=== PATIENT | male | born 1955 | race Caucasian/White ===

== ENCOUNTER 2017-09-04 14:45 | Emergency (ER) | payer BC, MEDICAID ==
[2017-09-04] MEDS ORDERED: Ketorolac INJ* 30 MG/ML 1 ML VIAL IV ONE (17:29)
[2017-09-04 18:20] LABS: ABS Basophils 0.1 10^3/ul (0-0.2); ABS Eosinophils 0.1 10^3/ul (0-0.6); ABS Lymphocytes 1.9 10^3/ul (1.0-4.8); ABS Monocytes 0.6 10^3/ul (0-0.8); ABS Neutrophils 5.6 10^3/ul (1.5-7.7); ABS Nucleated RBC 0 10^3/ul; Eosinophil % 1.7 % (0-6); Hematocrit 48 % (42-52); Hemoglobin 16.2 g/dl (14.0-18.0); Lymphocyte % 22.6 % (25-47); Mean Corpuscular HGB Conc 34 g/dl (31-36); Mean Corpuscular Hemoglobin 31 pg (27-31); Mean Corpuscular Volume 91 fL (80-94); Mean Platelet Volume 7.9 um3 (7.4-10.4); Nucleated Red Blood Cells % 0; Platelet Count 227 10^3/ul (150-450); Red Blood Count 5.24 10^6/ul (4.0-5.4); Red Cell Distribution Width 14 % (10.5-15); White Blood Count 8.3 10^3/ul (3.5-10.8)
[2017-09-04 18:52] LABS: EGFR Non-African American 74.5 (>60)
[2017-09-04] MEDS ORDERED: Iohexol 300* (CONTRAST) 10 ML SDV IV ONE (19:21)
[2017-09-04 20:01] LABS: Urine Appearance Clear; Urine Blood Negative (Negative); Urine Color Yellow; Urine Ketones Trace (Negative); Urine Protein Negative (Negative); Urine Specific Gravity 1.026 (1.010-1.030); Urine Urobilinogen Negative (Negative)
--- NOTE | 2017-09-04 20:25 | RAD ---
Indication: Left lower quadrant pain. CT of the abdomen and pelvis was performed without oral or IV contrast administration. Coronal and sagittal reconstructed images were obtained. Lung bases demonstrate no pleural fluid, nodules or masses. Heart is normal size without evidence of pericardial effusion. Liver is normal in size. No focal lesions or intrahepatic ductal dilatation is noted. Common duct is not dilated. Gallbladder demonstrates no evidence of calcified gallstones, pericholecystic fluid or wall thickening. The pancreas demonstrates no mass or pancreatic duct dilatation. The spleen is normal in size. No adrenal lesions are noted. The kidneys demonstrate no hydronephrosis. There is a cyst in the upper pole of left kidney measuring up to 3.1 cm. Lower pole cyst is noted in the left kidney measuring up to 2.8 cm. No retroperitoneal lymphadenopathy is noted. Atherosclerotic aorta is noted. CT of the pelvis demonstrates no pelvic adenopathy. No dilated loops of bowel are noted. The appendix is visualized and is normal. No hernias are noted. The prostate is enlarged. There is deformity of the pelvis from prior pelvic fracture. No inguinal hernia is noted. Degenerative changes of both hip are noted. No fracture is noted. IMPRESSION: Diverticulosis without definite evidence of diverticulitis. No abnormal masses or fluid collections are noted. Evidence of prior pelvic fracture. Moderate degenerative changes of both hips are noted.
[2017-09-04] MEDS ORDERED: traMADol TAB* 50 MG PO PRN (20:38)
[2017-09-04 21:02] VITALS: BP 139/89
--- NOTE | 2017-09-04 21:05 | ED ---
Shahram Stewart Thomas, scribed for Bryce Matson MD on 09/04/17 at 1754 . Abdominal Pain/Male - HPI Summary HPI Summary: The patient is a 62 year old male presenting with lower abdominal pain that began one week ago. He complains of nausea after eating for the last 4-5 days. He also complains of soreness to his testicles. He has been evaluated by his PMD and a hernia specialist. The hernia specialist told him that he did not have a hernia. He tells me that he had a recent urinalysis that was negative for UTI. - History of Current Complaint Chief Complaint: EDAbdPain Stated Complaint: LWR ABD PAIN Time Seen by Provider: 09/04/17 17:12 Hx Obtained From: Patient Onset/Duration: Lasting Weeks - 1, Still Present Severity Currently: Severe Pain Intensity: 7 Pain Scale Used: 0-10 Numeric Location: Other - Lower abd Aggravating Factor(s): Nothing Alleviating Factor(s): Nothing Associated Signs And Symptoms: Positive: Nausea, Other - Testicular soreness. Negative: Fever - Allergies/Home Medications Allergies/Adverse Reactions: Allergies Allergy/AdvReac Type Severity Reaction Status Date / Time No Known Allergies Allergy Verified 09/04/17 14:52 PMH/Surg Hx/FS Hx/Imm Hx Cardiovascular History: Reports: Hx Coronary Artery Disease - CAD Denies: Other Cardiovascular Problems/Disorders Respiratory History: Denies: Other Respiratory Problems/Disorders GI History: Denies: Other GI Disorders Musculoskeletal History: Reports: Hx Arthritis - LEFT WRIST Sensory History: Denies: Hx Contacts or Glasses, Hx Hearing Aid Opthamlomology History: Denies: Hx Contacts or Glasses Neurological History: Reports: 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 ALCOHOL Denies: Other Neuro Impairments/Disorders - Surgical History Surgery Procedure, Year, and Place: 1980S, SKULL, JAW, NOSE, LEFT WRIST, RIGHT LEG FROM A FALL, [place] Hx Anesthesia Reactions: No Infectious Disease History: No Infectious Disease History: Denies: Traveled Outside the [place] in Last 30 Days - Social History Alcohol Use: None Alcohol Amount: Clean since 1998 Substance Use Type: Reports: None Substance Use Comment - Amount & Last Used: Clean since 1998 Smoking Status (MU): Heavy Every Day Tobacco Smoker Type: Cigarettes Amount Used/How Often: 1 PPD Review of Systems Negative: Fever Positive: Abdominal Pain, Nausea Positive: other - Testicular soreness All Other Systems Reviewed And Are Negative: Yes Physical Exam - Summary Physical Exam Summary: Appearance: The patient is well-nourished in no acute distress and in no acute pain. Skin: The skin is warm and dry and skin color reflects adequate perfusion. HEENT: The head is normocephalic and atraumatic. The pupils are equal and reactive. The conjunctivae are clear and without drainage. Nares are patent and without drainage. Mouth reveals moist mucous membranes and the throat is without erythema and exudate. The external ears are intact. The ear canals are patent and without drainage. The tympanic membranes are intact. Neck: the neck is supple with full range of motion and non-tender. There are no carotid bruits. There is no neck vein distension. Respiratory: Chest is non-tender. Lungs are clear to auscultation and breath sounds are symmetrical and equal. Cardiovascular: Heart is regular rate and rhythm. There is no murmur or rub auscultated. There is no peripheral edema and pulses are symmetrical and equal. Abdomen: The abdomen is soft. He is mildly tender to the left inguinal area. He is nontender to the RLQ. There are no masses appreciated. There are normal bowel sounds heard in all four quadrants and there is no organomegaly palpated. Musculoskeletal: There is no back tenderness noted. Extremities are non-tender with full range of motion. There is good capillary refill. There is no peripheral edema or calf tenderness elicited. Neurological: Patient is alert and oriented to person, place and time. The patient has symmetrical motor strength in all four extremities. Cranial nerves are grossly intact. Deep tendon reflexes are symmetrical and equal in all four extremities. Psychiatric: The patient has an appropriate affect and does not exhibit any anxiety or depression. Triage Information Reviewed: Yes Vital Signs On Initial Exam: Initial Vitals Temp Pulse Resp BP Pulse Ox 98.1 F 75 16 132/79 100 09/04/17 14:53 09/04/17 14:53 09/04/17 14:53 09/04/17 14:53 09/04/17 14:53 Vital Signs Reviewed: Yes Diagnostics - Vital Signs Vital Signs Temp Pulse Resp BP Pulse Ox 09/04/17 16:58 98.5 F 61 16 131/77 09/04/17 14:53 98.1 F 75 16 132/79 100 - Laboratory Lab Results: Lab Results 09/04/17 09/04/17 09/04/17 Range/Units 18:00 18:00 18:00 WBC 8.3 (3.5-10.8) 10^3/ul RBC 5.24 (4.0-5.4) 10^6/ul Hgb 16.2 (14.0-18.0) g/dl Hct 48 (42-52) % MCV 91 (80-94) fL MCH 31 (27-31) pg MCHC 34 (31-36) g/dl RDW 14 (10.5-15) % Plt Count 227 (150-450) 10^3/ul MPV 7.9 (7.4-10.4) um3 Neut % (Auto) 67.4 (38-83) % Lymph % (Auto) 22.6 L (25-47) % [place] % (Auto) 6.8 (0-7) % Eos % (Auto) 1.7 (0-6) % Baso % (Auto) 1.5 (0-2) % Absolute Neuts (auto) 5.6 (1.5-7.7) 10^3/ul Absolute Lymphs (auto) 1.9 (1.0-4.8) 10^3/ul Absolute Monos (auto) 0.6 (0-0.8) 10^3/ul Absolute Eos (auto) 0.1 (0-0.6) 10^3/ul Absolute Basos (auto) 0.1 (0-0.2) 10^3/ul Absolute Nucleated RBC 0 10^3/ul Nucleated RBC % 0 Sodium 133 L (139-145) mmol/L Potassium TNP Chloride 104 (101-111) mmol/L Carbon Dioxide 24 (22-32) mmol/L Anion Gap 5 (2-11) mmol/L BUN 28 H (6-24) mg/dL Creatinine 1.02 (0.67-1.17) mg/dL Est GFR ( Amer) 95.8 (>60) Est GFR (Non-Af Amer) 74.5 (>60) BUN/Creatinine Ratio 27.5 H (8-20) Glucose 83 (70-100) mg/dL Lactic Acid 0.6 (0.5-2.0) mmol/L Calcium 9.0 (8.6-10.3) mg/dL Total Bilirubin 0.40 (0.2-1.0) mg/dL AST TNP ALT 16 (7-52) U/L Alkaline Phosphatase 51 (34-104) U/L C-Reactive Protein 1.19 (< 5.00) mg/L Total Protein 7.2 (6.4-8.9) g/dL Albumin 4.0 (3.2-5.2) g/dL Globulin 3.2 (2-4) g/dL Albumin/Globulin Ratio 1.3 (1-3) Lipase 26 (11.0-82.0) U/L Urine Color Urine Appearance Urine pH (5-9) Ur Specific [place] (1.010-1.030) Urine Protein (Negative) Urine Ketones (Negative) Urine Blood (Negative) Urine Nitrate (Negative) Urine Bilirubin (Negative) Urine Urobilinogen (Negative) Ur Leukocyte Esterase (Negative) Urine Glucose (Negative) 09/04/17 09/04/17 Range/Units 19:50 19:54 WBC (3.5-10.8) 10^3/ul RBC (4.0-5.4) 10^6/ul Hgb (14.0-18.0) g/dl Hct (42-52) % MCV (80-94) fL MCH (27-31) pg MCHC (31-36) g/dl RDW (10.5-15) % Plt Count (150-450) 10^3/ul MPV (7.4-10.4) um3 Neut % (Auto) (38-83) % Lymph % (Auto) (25-47) % [place] % (Auto) (0-7) % Eos % (Auto) (0-6) % Baso % (Auto) (0-2) % Absolute Neuts (auto) (1.5-7.7) 10^3/ul Absolute Lymphs (auto) (1.0-4.8) 10^3/ul Absolute Monos (auto) (0-0.8) 10^3/ul Absolute Eos (auto) (0-0.6) 10^3/ul Absolute Basos (auto) (0-0.2) 10^3/ul Absolute Nucleated RBC 10^3/ul Nucleated RBC % Sodium (139-145) mmol/L Potassium 4.2 Chloride (101-111) mmol/L Carbon Dioxide (22-32) mmol/L Anion Gap (2-11) mmol/L BUN (6-24) mg/dL Creatinine (0.67-1.17) mg/dL Est GFR ( Amer) (>60) Est GFR (Non-Af Amer) (>60) BUN/Creatinine Ratio (8-20) Glucose (70-100) mg/dL Lactic Acid (0.5-2.0) mmol/L Calcium (8.6-10.3) mg/dL Total Bilirubin (0.2-1.0) mg/dL AST 17 ALT (7-52) U/L Alkaline Phosphatase (34-104) U/L C-Reactive Protein (< 5.00) mg/L Total Protein (6.4-8.9) g/dL Albumin (3.2-5.2) g/dL Globulin (2-4) g/dL Albumin/Globulin Ratio (1-3) Lipase (11.0-82.0) U/L Urine Color Yellow Urine Appearance Clear Urine pH 6.0 (5-9) Ur Specific [place] 1.026 (1.010-1.030) Urine Protein Negative (Negative) Urine Ketones Trace A (Negative) Urine Blood Negative (Negative) Urine Nitrate Negative (Negative) Urine Bilirubin Negative (Negative) Urine Urobilinogen Negative (Negative) Ur Leukocyte Esterase Negative (Negative) Urine Glucose Negative (Negative) Result Diagrams: 09/04/17 18:00 09/04/17 19:54 Lab Statement: Any lab studies that have been ordered have been reviewed, and results considered in the medical decision making process. - CT CT Abdomen/Pelvis CT Interpretation: No Acute Changes - IMPRESSION: Diverticulosis without definite evidence of diverticulitis. No abnormal masses or fluid collections are noted. Evidence of prior pelvic fracture. Moderate degenerative changes of both hips are noted. CT Interpretation Completed By: Radiologist Re-Evaluation - Re-Evaluation First Eval Re-Evaluation Time: 20:39 Comment: Results discussed. Patient will be discharged. Abdominal Pain Fem Course/Dx - Course Course Of Treatment: Mr. Aden presented with some pain in his left inguinal area. His W/U was negative and his exam nondiagnostic so I will treat him symptomatically with Tramadol and encourage close F/U. - Diagnoses Provider Diagnoses: Abdominal pain Discharge - Sign-Out/Discharge Documenting (check all that apply): Discharge - Discharge Plan Condition: Stable Disposition: HOME Prescriptions: traMADol TAB* [Ultram*] 50 mg PO Q6HR PRN #20 tab MDD 4 PRN Reason: Pain Patient Education Materials: Abdominal Pain (ED) Referrals: Rohan Mchugh MD [Primary Care Provider] - 3 Days Additional Instructions: Follow up with your primary care physician in two days. Return to the emergency department for any new or worsening symptoms. - Billing Disposition and Condition Condition: STABLE Disposition: HOME The documentation as recorded by the Shahram gonsalves Thomas accurately reflects the service I personally performed and the decisions made by , Bryce Matson MD.
== END 2017-09-04 20:58 | disposition home or self-care (01) ==
LOC: ED 14:45
DX: R10.30 Lower abdominal pain, unspecified (principal); F17.210 Nicotine dependence, cigarettes, uncomplicated; I25.10 Atherosclerotic heart disease of native coronary artery without angina pectoris; K57.90 Diverticulosis of intestine, part unspecified, without perforation or abscess without bleeding
CPT/HCPCS: 36415; 74177; 80053; 81003; 83605; 83690; 85025; 86140; 96374; 96375; 99282; J1885; Q9967

== ENCOUNTER 2017-09-23 10:46 | Emergency (ER) | payer SELFPAY ==
[2017-09-23 12:05] LABS: ABS Basophils 0.1 10^3/ul (0-0.2); ABS Eosinophils 0.1 10^3/ul (0-0.6); ABS Lymphocytes 1.4 10^3/ul (1.0-4.8); ABS Monocytes 0.6 10^3/ul (0-0.8); ABS Nucleated RBC 0 10^3/ul; Eosinophil % 1.3 % (0-6); Hematocrit 47 % (42-52); Hemoglobin 16.3 g/dl (14.0-18.0); Lymphocyte % 19.2 % (25-47); Mean Corpuscular HGB Conc 35 g/dl (31-36); Mean Corpuscular Hemoglobin 31 pg (27-31); Mean Corpuscular Volume 90 fL (80-94); Mean Platelet Volume 7.5 um3 (7.4-10.4); Nucleated Red Blood Cells % 0; Platelet Count 304 10^3/ul (150-450); Red Blood Count 5.24 10^6/ul (4.0-5.4); Red Cell Distribution Width 13 % (10.5-15); White Blood Count 7.1 10^3/ul (3.5-10.8)
[2017-09-23] MEDS ORDERED: Morphine VIAL* 4 MG/ML VIAL (1 ml vial) IV ONE (12:11)
[2017-09-23 12:24] LABS: EGFR Non-African American 75.4 (>60)
--- NOTE | 2017-09-23 13:04 | RAD ---
INDICATION: Chest pain COMPARISON: Chest x-ray dated November 02, 2014. TECHNIQUE: PA and lateral views of the chest were obtained. FINDINGS: The heart and mediastinum are normal in size and contour. Immediately lateral to the right hilum there is a well-circumscribed 1.8 cm focus exhibiting hyperdense material on the bone windows is consistent with a calcified granuloma. Otherwise the lungs are grossly clear. There is no evidence of large pleural effusion. Visualized bones are normal for the patient's age. There is no radiographic evidence of free air beneath the diaphragm IMPRESSION: STABLE RIGHT HILAR CALCIFIED GRANULOMA WITHOUT ACUTE CHEST X-RAY FINDINGS.
[2017-09-23 14:24] VITALS: BP 144/82
--- NOTE | 2017-09-23 15:13 | ED ---
Complex/Multi-Sys Presentation - HPI Summary HPI Summary: Patient is a 8-year-old male who presents emergency department for left lateral neck pain that radiates into her jaw and shoulder times several days. Patient also notes intermittent tingling to the left upper side of his face. He denies headache, vision changes, unilateral numbness, tingling or weakness, recent illness, chest pain, shortness of breath. Patient does not recall any specific injury. Pain is worse with movement and touching left-sided neck. Past medical history of COPD and smoking. Symptoms are moderate in severity. - History Of Current Complaint Chief Complaint: EDNeckComplaint Time Seen by Provider: 09/23/17 11:20 Hx Obtained From: Patient - Allergies/Home Medications Allergies/Adverse Reactions: Allergies Allergy/AdvReac Type Severity Reaction Status Date / Time No Known Allergies Allergy Verified 09/23/17 11:25 Home Medications: Home Medications Aspirin EC TAB* [Ecotrin EC Low Dose 81 MG*] 81 mg PO DAILY 09/23/17 [History Confirmed 09/23/17] PMH/Surg Hx/FS Hx/Imm Hx Previously Healthy: Yes Endocrine/Hematology History: Denies: Hx Diabetes Cardiovascular History: Reports: Hx Coronary Artery Disease - CAD Denies: Hx Hypertension, Other Cardiovascular Problems/Disorders Respiratory History: Denies: Other Respiratory Problems/Disorders GI History: Denies: Other GI Disorders History: Denies: Hx Renal Disease Musculoskeletal History: Reports: Hx Arthritis - LEFT WRIST Sensory History: Denies: Hx Contacts or Glasses, Hx Hearing Aid Opthamlomology History: Denies: Hx Contacts or Glasses Neurological History: Reports: 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 ALCOHOL Denies: Other Neuro Impairments/Disorders - Surgical History Surgery Procedure, Year, and Place: 1980S, SKULL, JAW, NOSE, LEFT WRIST, RIGHT LEG FROM A FALL, [place] Hx Anesthesia Reactions: No Infectious Disease History: No Infectious Disease History: Denies: Traveled Outside the [place] in Last 30 Days - Social History Occupation: Employed Full-time Lives: With Family Alcohol Use: None Alcohol Amount: Clean since 1998 Substance Use Type: Reports: None Substance Use Comment - Amount & Last Used: Clean since 1998 Smoking Status (MU): Heavy Every Day Tobacco Smoker Type: Cigarettes Amount Used/How Often: 1 PPD Review of Systems Constitutional: Negative Negative: Fever, Chills Eyes: Negative ENT: Negative Cardiovascular: Negative Negative: Palpitations, Chest Pain Respiratory: Negative Negative: Shortness Of Breath, Cough Skin: Negative Negative: Rash Neurological: Negative Positive: Paresthesia - occasional tingling to left upper side of face. Negative: Headache, Weakness, Numbness, Syncope, Slurred Speech All Other Systems Reviewed And Are Negative: Yes Physical Exam Triage Information Reviewed: Yes Vital Signs On Initial Exam: Initial Vitals Temp Pulse Resp BP Pulse Ox 97.8 F 91 16 150/92 99 09/23/17 10:50 09/23/17 10:50 09/23/17 10:50 09/23/17 10:50 09/23/17 10:50 Vital Signs Reviewed: Yes Appearance: Positive: Well-Appearing - Patient sitting in chair no acute chest her present. Skin: Positive: Warm, Dry Head/Face: Positive: Normal Head/Face Inspection Eyes: Positive: Normal, GEOVANNY Neck: Positive: Other: - No midline tenderness. Pain along the lateral left neck into the shoulder. Pain is reproducible. Overlying erythema or wounds. Respiratory/Lung Sounds: Positive: Clear to Auscultation, Breath Sounds Present Cardiovascular: Positive: Normal, RRR Musculoskeletal: Positive: Other - 5 out of 5 strength in bilateral upper extremities without neurosensory deficits. Neurological: Positive: Normal, CN Intact II-III, Facial Symmetry, Speech Normal , Other - No neurosensory deficits. Negative: Facial Droop, Slurred Speech, Dysphagia Psychiatric: Positive: Normal Diagnostics - Vital Signs Vital Signs Temp Pulse Resp BP Pulse Ox 09/23/17 14:23 98.8 F 72 22 144/82 96 09/23/17 13:00 20 09/23/17 10:50 97.8 F 91 16 150/92 99 - Laboratory Lab Results: Lab Results 09/23/17 09/23/17 09/23/17 Range/Units 11:53 11:53 11:53 WBC 7.1 (3.5-10.8) 10^3/ul RBC 5.24 (4.0-5.4) 10^6/ul Hgb 16.3 (14.0-18.0) g/dl Hct 47 (42-52) % MCV 90 (80-94) fL MCH 31 (27-31) pg MCHC 35 (31-36) g/dl RDW 13 (10.5-15) % Plt Count 304 (150-450) 10^3/ul MPV 7.5 (7.4-10.4) um3 Neut % (Auto) 70.3 (38-83) % Lymph % (Auto) 19.2 L (25-47) % [place] % (Auto) 8.4 H (0-7) % Eos % (Auto) 1.3 (0-6) % Baso % (Auto) 0.8 (0-2) % Absolute Neuts (auto) 5.0 (1.5-7.7) 10^3/ul Absolute Lymphs (auto) 1.4 (1.0-4.8) 10^3/ul Absolute Monos (auto) 0.6 (0-0.8) 10^3/ul Absolute Eos (auto) 0.1 (0-0.6) 10^3/ul Absolute Basos (auto) 0.1 (0-0.2) 10^3/ul Absolute Nucleated RBC 0 10^3/ul Nucleated RBC % 0 APTT 33.2 (26.0-36.3) seconds Sodium 138 L (139-145) mmol/L Potassium 4.5 (3.5-5.0) mmol/L Chloride 104 (101-111) mmol/L Carbon Dioxide 27 (22-32) mmol/L Anion Gap 7 (2-11) mmol/L BUN 20 (6-24) mg/dL Creatinine 1.01 (0.67-1.17) mg/dL Est GFR ( Amer) 96.9 (>60) Est GFR (Non-Af Amer) 75.4 (>60) BUN/Creatinine Ratio 19.8 (8-20) Glucose 89 (70-100) mg/dL Calcium 9.7 (8.6-10.3) mg/dL Total Bilirubin 0.50 (0.2-1.0) mg/dL AST 16 (13-39) U/L ALT 12 (7-52) U/L Alkaline Phosphatase 64 (34-104) U/L Troponin I 0.00 (<0.04) ng/mL B-Natriuretic Peptide ( - 100) pg/mL Total Protein 7.2 (6.4-8.9) g/dL Albumin 4.3 (3.2-5.2) g/dL Globulin 2.9 (2-4) g/dL Albumin/Globulin Ratio 1.5 (1-3) /03/03 Range/Units 11:53 WBC (3.5-10.8) 10^3/ul RBC (4.0-5.4) 10^6/ul Hgb (14.0-18.0) g/dl Hct (42-52) % MCV (80-94) fL MCH (27-31) pg MCHC (31-36) g/dl RDW (10.5-15) % Plt Count (150-450) 10^3/ul MPV (7.4-10.4) um3 Neut % (Auto) (38-83) % Lymph % (Auto) (25-47) % [place] % (Auto) (0-7) % Eos % (Auto) (0-6) % Baso % (Auto) (0-2) % Absolute Neuts (auto) (1.5-7.7) 10^3/ul Absolute Lymphs (auto) (1.0-4.8) 10^3/ul Absolute Monos (auto) (0-0.8) 10^3/ul Absolute Eos (auto) (0-0.6) 10^3/ul Absolute Basos (auto) (0-0.2) 10^3/ul Absolute Nucleated RBC 10^3/ul Nucleated RBC % APTT (26.0-36.3) seconds Sodium (139-145) mmol/L Potassium (3.5-5.0) mmol/L Chloride (101-111) mmol/L Carbon Dioxide (22-32) mmol/L Anion Gap (2-11) mmol/L BUN (6-24) mg/dL Creatinine (0.67-1.17) mg/dL Est GFR ( Amer) (>60) Est GFR (Non-Af Amer) (>60) BUN/Creatinine Ratio (8-20) Glucose (70-100) mg/dL Calcium (8.6-10.3) mg/dL Total Bilirubin (0.2-1.0) mg/dL AST (13-39) U/L ALT (7-52) U/L Alkaline Phosphatase (34-104) U/L Troponin I (<0.04) ng/mL B-Natriuretic Peptide 15 ( - 100) pg/mL Total Protein (6.4-8.9) g/dL Albumin (3.2-5.2) g/dL Globulin (2-4) g/dL Albumin/Globulin Ratio (1-3) Result Diagrams: 09/23/17 11:53 09/23/17 11:53 Lab Statement: Any lab studies that have been ordered have been reviewed, and results considered in the medical decision making process. Complex Multi-Symp Course/Dx Course Of Treatment: Patient presenting for evaluation of left-sided neck pain that radiates into his left arm as well as occasional paresthesias to his left upper side of face. He has no rashes on exam or evidence of shingles. He is afebrile with stable vital signs. He has no neurological deficits. Suspect cervical radiculopathy but we'll order a chest pain workup given patient's risk factors and radicular pain into shoulder. EKG done at 1147 shows a sinus rhythm of 74 bpm, minimal ST elevation inferior leads, no STEMI, over intervals , blood work is unremarkable. Chest x-ray is negative for acute findings per radiology. Results were discussed with patient. His pain has markedly improved after IV morphine. Patient notes that he has had tingling in his face in the past and had a negative workup. Patient has a scheduled appointment with his family doctor tomorrow which he is to keep for follow-up. To return to the ER if symptoms change or worsen. Will rx a few days of pain medication and steroids were prescribed. 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 - Diagnoses Provider Diagnoses: Cervical radiculopathy, Paresthesia Discharge - Sign-Out/Discharge Documenting (check all that apply): Discharge/Admit/Transfer - Discharge Plan Condition: Good Disposition: HOME Prescriptions: Hydrocodone/Acetaminophen [Hydrocodone-Acetamin 5-325 mg] 1 each PO Q6H 3 Days # 12 tablet MDD 4 tablets methylPREDNISolone [Medrol Dosepak 4 MG*] 0 mg PO .SEE KIARRA INSTRUCTION #1 tab Patient Education Materials: Paresthesia (ED), Cervical Radiculopathy (ED) Referrals: Rohan Mchugh MD [Primary Care Provider] - Additional Instructions: Follow up with your PCP tomorrow as scheduled Take medication as directed Return to ER for chest pain, shortness of breath, unilateral weakness or if concerned - Billing Disposition and Condition Condition: GOOD Disposition: HOME
== END 2017-09-23 13:52 | disposition home or self-care (01) ==
LOC: ED 10:46
DX: M54.12 Radiculopathy, cervical region (principal); R20.2 Paresthesia of skin; J84.10 Pulmonary fibrosis, unspecified; F17.210 Nicotine dependence, cigarettes, uncomplicated
CPT/HCPCS: 36415; 71046; 80053; 83880; 84484; 85025; 85730; 93005; 96374; 99282; J2270

== ENCOUNTER 2018-01-01 00:14 | Emergency (ER) | payer BC ==
[2018-01-01] MEDS ORDERED: oxyCODONE TAB* 5 MG TAB PO ONE (01:35)
--- NOTE | 2018-01-01 01:37 | ED ---
Laceration/Wound HPI - HPI Summary HPI Summary: 62-year-old male presents with bleeding from an incision today. He states that he had a excisional biopsy done today on his left side of his face. He states that he went to sleep he noticed some bleeding when he woke up. He has a sutures placed in the area. No fevers. No rash. He is on daily aspirin. He states that he has been having increasing the pain in the area. He also notes increasing swelling. - History of Current Complaint Stated Complaint: FACIAL LAC Time Seen by Provider: 01/01/18 00:43 Pain Intensity: 8 - Allergy/Home Medications Allergies/Adverse Reactions: Allergies Allergy/AdvReac Type Severity Reaction Status Date / Time No Known Allergies Allergy Verified 01/01/18 00:22 PMH/Surg Hx/FS Hx/Imm Hx Endocrine/Hematology History: Denies: Hx Diabetes Cardiovascular History: Reports: Hx Coronary Artery Disease - CAD Denies: Hx Hypertension, Other Cardiovascular Problems/Disorders Respiratory History: Denies: Other Respiratory Problems/Disorders GI History: Denies: Other GI Disorders History: Denies: Hx Renal Disease Musculoskeletal History: Reports: Hx Arthritis - LEFT WRIST Sensory History: Denies: Hx Contacts or Glasses, Hx Hearing Aid Opthamlomology History: Denies: Hx Contacts or Glasses Neurological History: Reports: 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 ALCOHOL Denies: Other Neuro Impairments/Disorders - Surgical History Surgery Procedure, Year, and Place: 1980S, SKULL, JAW, NOSE, LEFT WRIST, RIGHT LEG FROM A FALL, [facility] Hx Anesthesia Reactions: No Infectious Disease History: No Infectious Disease History: Denies: Traveled Outside the in Last 30 Days - Family History Known Family History: Positive: Hypertension - Social History Alcohol Use: None Alcohol Amount: Clean since 1998 Substance Use Type: Reports: None Substance Use Comment - Amount & Last Used: Clean since 1998 Smoking Status (MU): Heavy Every Day Tobacco Smoker Type: Cigarettes Amount Used/How Often: 1 PPD Review of Systems Negative: Fever Negative: Chest Pain Negative: Shortness Of Breath Positive: Other - facial bleeding All Other Systems Reviewed And Are Negative: Yes Physical Exam Triage Information Reviewed: Yes Vital Signs On Initial Exam: Initial Vitals Temp Pulse Resp BP Pulse Ox 97.8 F 80 16 155/101 96 01/01/18 00:17 01/01/18 00:17 01/01/18 00:17 01/01/18 00:17 01/01/18 00:17 Vital Signs Reviewed: Yes Appearance: Positive: Well-Appearing Skin: Positive: Other - hematoma on left side of face, two sutures in place, minimal bleeding Eyes: Positive: Normal, EOMI, GEOVANNY, Conjunctiva Clear ENT: Positive: Normal ENT inspection, Pharynx normal, TMs normal Respiratory/Lung Sounds: Positive: Clear to Auscultation, Breath Sounds Present Cardiovascular: Positive: Normal, RRR Musculoskeletal: Positive: Normal Neurological: Positive: Normal Psychiatric: Positive: Normal Diagnostics - Vital Signs Vital Signs Temp Pulse Resp BP Pulse Ox 01/01/18 00:17 97.8 F 80 16 155/101 96 - Laboratory Lab Statement: Any lab studies that have been ordered have been reviewed, and results considered in the medical decision making process. Laceration Repair Course/Dx - Course Course Of Treatment: 62-year-old male presents with bleeding from an incision today. He states that he had a excisional biopsy done today on his left side of his face. He states that he went to sleep he noticed some bleeding when he woke up. He has a sutures placed in the area. No fevers. No rash. He is on daily aspirin. He states that he has been having increasing the pain in the area. He also notes increasing swelling. on exam bleeding from two sutures area with hematoma present. had dr rico examine patient and suggested not open the area and to have place ice and compression. patient understand and agrees with plan. - Differential Dx Differental Diagnoses: Laceration, Other - hematoma, healing wound - Clinical Impression Provider Diagnoses: Hematoma of face Discharge - Sign-Out/Discharge Documenting (check all that apply): Patient Departure - Discharge Plan Condition: Good Disposition: HOME Patient Education Materials: Hematoma (ED) Referrals: Rohan Mchugh MD [Primary Care Provider] - Additional Instructions: hold aspirin for two days apply ice apply pressure dressing for next 2 days Take tyenlol every 6 hours as needed for pain follow up as scheduled Return to ED if develop any new or worsening symptoms - Billing Disposition and Condition Condition: GOOD Disposition: Home
[2018-01-01 02:00] VITALS: BP 164/105
== END 2018-01-01 01:58 | disposition home or self-care (01) ==
LOC: ED 00:14
DX: L76.32 Postprocedural hematoma of skin and subcutaneous tissue following other procedure (principal); L76.22 Postprocedural hemorrhage of skin and subcutaneous tissue following other procedure; F17.210 Nicotine dependence, cigarettes, uncomplicated
CPT/HCPCS: 99282; A9270-GY

== ENCOUNTER 2018-05-11 17:05 | Emergency (ER) | payer BC ==
[2018-05-11 17:13] VITALS: BP 132/87
[2018-05-11] MEDS ORDERED: Albuterol/Ipratropium NEB.SOL* Albuterol 2.5 MG/Ipratropium 0.5 MG 3 ML INH ONE (17:19)
--- NOTE | 2018-05-11 17:20 | UC ---
Respiratory Complaint HPI - HPI Summary HPI Summary: 63 yo male presents with 2 weeks of chest congestion and productive cough. He feels short of breath at times. Still smoking daily. Has not been taking anything OTC. Denies fever, chills, sinus symptoms, sore throat, n/v. - History of Current Complaint Chief Complaint: UCGeneralIllness Stated Complaint: URI Time Seen by Provider: 05/11/18 17:15 Hx Obtained From: Patient Onset/Duration: Gradual Onset Severity Initially: Moderate Severity Currently: Severe Pain Intensity: 8 Pain Scale Used: 0-10 Numeric Character: Cough: Productive - Allergies/Home Medications Allergies/Adverse Reactions: Allergies Allergy/AdvReac Type Severity Reaction Status Date / Time No Known Allergies Allergy Verified 05/11/18 17:13 PMH/Surg Hx/FS Hx/Imm Hx - Additional Past Medical History Additional PMH: None - Surgical History Surgical History: None Surgery Procedure, Year, and Place: 1980S, SKULL, JAW, NOSE, LEFT WRIST, RIGHT LEG FROM A FALL, [facility] - Family History Known Family History: Positive: Hypertension - Social History Occupation: Employed Full-time Lives: With Family Alcohol Use: None Alcohol Amount: Clean since 1998 Substance Use Type: None Substance Use Comment - Amount & Last Used: Clean since 1998 Smoking Status (MU): Heavy Every Day Tobacco Smoker Type: Cigarettes Amount Used/How Often: 1 PPD Household Exposure Type: Cigarettes Review of Systems All Other Systems Reviewed And Are Negative: Yes Constitutional: Positive: Negative Skin: Positive: Negative Eyes: Positive: Negative ENT: Positive: Negative Respiratory: Positive: Shortness Of Breath, Cough Cardiovascular: Positive: Negative Gastrointestinal: Positive: Negative Physical Exam - Summary Physical Exam Summary: GENERAL: NAD. WDWN. No pain distress. SKIN: No rashes, sores, lesions, or open wounds. HEENT: Head: AT/NC Eyes: Conjunctiva clear without inflammation or discharge. Ears: Hearing grossly normal. TMs intact, no bulging, erythema, or edema. Nose: Nasal mucosa pink and moist. NTTP maxillary and frontal sinus. Throat: Posterior oropharynx without exudates, erythema, or tonsillar enlargement. Uvula midline. NECK: Supple. Nontender. No lymphadenopathy. CHEST: Moderate wheezing throughout with bibasilar crackles. No accessory muscle use. Breathing comfortably and in no distress. CV: RRR. Without m/r/g. Pulses intact. Cap refill <2seconds NEURO: Alert. PSYCH: Age appropriate behavior. Triage Information Reviewed: Yes Vital Signs: Initial Vital Signs Temp 98.6 F 05/11/18 17:10 Pulse 86 05/11/18 17:10 Resp 18 05/11/18 17:10 BP 132/87 05/11/18 17:10 Pulse Ox 97 05/11/18 17:10 Vital Signs Reviewed: Yes UC Diagnostic Evaluation - Laboratory O2 Sat by Pulse Oximetry: 97 Re-Evaluation - Re-Evaluation First Eval Re-Evaluation Time: 17:46 Change: Improved Comment: Improved s/p duoneb. Easier to take a deep breath and less wheezing. Respiratory Course/Dx - Course Course Of Treatment: CXR: IMPRESSION: NO ACTIVE CARDIOPULMONARY DISEASE. Duoneb: Improved s/p. Easier work of breathing. Less wheezing throughout. Suspect bronchitis. - Differential Dx/Diagnosis Provider Diagnosis: Bronchitis Discharge - Sign-Out/Discharge Documenting (check all that apply): Patient Departure All imaging exams completed and their final reports reviewed: Yes - Discharge Plan Condition: Stable Disposition: HOME Prescriptions: Albuterol HFA INHALER* [Ventolin HFA Inhaler*] 1 - 2 puff INH Q6H PRN #1 mdi PRN Reason: Cough Azithromycin TAB* [Zithromax TAB (Z-KIARRA) 250 mg #6 tabs] 2 tab PO .TODAY, THEN 1 DAILY #1 kiarra Codeine Phosphate/Guaifenesin [Guaifen-Codeine 100-10 mg/5 ml] 5 ml PO BEDTIME PRN #30 ml MDD 5mL PRN Reason: Cough predniSONE TAB* [Deltasone 20 MG TAB*] 40 mg PO DAILY #10 tab Patient Education Materials: Acute Bronchitis (ED) Referrals: Rohan Mchugh MD [Primary Care Provider] - Additional Instructions: If you develop a fever, shortness of breath, chest pain, new or worsening symptoms - please call your PCP or go to the ED. - Billing Disposition and Condition Condition: STABLE Disposition: Home
== END 2018-05-11 17:54 | disposition home or self-care (01) ==
LOC: UCEAST 17:05
DX: J40 Bronchitis, not specified as acute or chronic (principal); F17.210 Nicotine dependence, cigarettes, uncomplicated
CPT/HCPCS: 71046; 99212; A9270-GY; G0463

== ENCOUNTER 2019-01-15 15:46 | Emergency (ER) | payer BC ==
[2019-01-15 16:06] VITALS: BP 131/87
--- NOTE | 2019-01-15 16:07 | UC ---
Throat Pain/Nasal Carlos HPI - HPI Summary HPI Summary: 63 yo male presents with left sided sinus pain/pressure/congestion, dry cough, and post nasal drip. He tells me that he was seen here about 5-6 days ago and was told he had a viral cold and he symptoms would improve. He did feel better for a day or two, but his symptoms returned and feel worse than before. He has not been taking anything OTC. Has felt feverish, but has not taken his temperature. Denies SOB, chest pain, abdominal pain, n/v. - History of Current Complaint Chief Complaint: UCGeneralIllness Stated Complaint: TIRED,FACIAL SWELLING Hx Obtained From: Patient Onset/Duration: Gradual Onset Severity: Moderate Pain Intensity: 5 Pain Scale Used: 0-10 Numeric - Allergies/Home Medications Allergies/Adverse Reactions: Allergies Allergy/AdvReac Type Severity Reaction Status Date / Time No Known Allergies Allergy Verified 01/15/19 16:06 PMH/Surg Hx/FS Hx/Imm Hx - Additional Past Medical History Additional PMH: None - Surgical History Surgical History: Yes Surgery Procedure, Year, and Place: 1980S, SKULL, JAW, NOSE, LEFT WRIST, RIGHT LEG FROM A FALL, [facility] - Family History Known Family History: Positive: Hypertension - Social History Lives: With Family Alcohol Use: None Alcohol Amount: Clean since 1998 Substance Use Type: None Substance Use Comment - Amount & Last Used: Clean since 1998 Smoking Status (MU): Heavy Every Day Tobacco Smoker Type: Cigarettes Amount Used/How Often: 1 PPD Household Exposure Type: Cigarettes Review of Systems All Other Systems Reviewed And Are Negative: No Constitutional: Positive: Fever Skin: Positive: Negative Eyes: Positive: Negative ENT: Positive: Nasal Discharge, Sinus Congestion, Sinus Pain/Tenderness Respiratory: Positive: Cough Cardiovascular: Positive: Negative Neurovascular: Positive: Negative Neurological: Positive: Negative Psychological: Positive: Negative Physical Exam - Summary Physical Exam Summary: GENERAL: NAD. WDWN. No pain distress. SKIN: No rashes, sores, lesions, or open wounds. HEENT: Head: AT/NC Eyes: EOM intact. Conjunctiva clear without inflammation or discharge. Ears: Hearing grossly normal. TMs intact, no bulging, erythema, or edema. Nose: Nasal mucosa mildly swollen and erythematous with yellow discharge. TTP maxillary and sinus L>R. Positive post nasal drip Throat: Posterior oropharynx without exudates, erythema, or tonsillar enlargement. Uvula midline. NECK: Supple. Nontender. No lymphadenopathy. CHEST: CTAB. No r/r/w. No accessory muscle use. Breathing comfortably and in no distress. CV: RRR. Without m/r/g. Pulses intact. NEURO: Alert. PSYCH: Age appropriate behavior. Triage Information Reviewed: Yes Vital Signs: Initial Vital Signs Temp 99.5 F 01/15/19 16:03 Pulse 89 01/15/19 16:03 Resp 17 01/15/19 16:03 BP 131/87 01/15/19 16:03 Pulse Ox 98 01/15/19 16:03 Vital Signs Reviewed: Yes Throat Pain/Nasal Course/Dx - Course Course Of Treatment: Sinusitis - Differential Dx/Diagnosis Provider Diagnosis: Sinusitis Discharge ED - Sign-Out/Discharge Documenting (check all that apply): Patient Departure All imaging exams completed and their final reports reviewed: No Studies - Discharge Plan Condition: Stable Disposition: HOME Prescriptions: Amoxicillin PO (*) [Amoxicillin 875 MG (*)] 875 mg PO BID #14 tab guaiFENesin ER TAB [Mucinex*] 600 mg PO BID #14 tab Patient Education Materials: Sinusitis (ED) Referrals: Rohan Mchugh MD [Primary Care Provider] - Additional Instructions: If you develop a fever, shortness of breath, chest pain, new or worsening symptoms - please call your PCP or go to the ED immediately. - Billing Disposition and Condition Condition: STABLE Disposition: Home
== END 2019-01-15 16:22 | disposition home or self-care (01) ==
LOC: UCEAST 15:46
DX: J32.9 Chronic sinusitis, unspecified (principal); F17.210 Nicotine dependence, cigarettes, uncomplicated
CPT/HCPCS: 99212; G0463

== ENCOUNTER 2019-07-04 13:00 | Observation (INO) | payer BC ==
--- OUTSIDE RECORDS SUMMARY | 2019-07-04 13:17 | XMS REPORT | Summary of Care ---
:1955 Author Organization [facility] Address [address] [facility] [place] [address] Care Team Providers Name Role Phone Rohan Mchugh Ray Primary Care Provider Reason for Visit Reason Comments Referral pt sonny piedra referral to pulmonology due to Spot on his lung found last year, chronic cough and SOB Encounter Details Date Type Department Care Team Description 05/24/2019 Office Visit [place] Kelle Benitez, COPD, mild (HCC) ( Primary Dx); Practice PA-C Tobacco use disorder, continuous [address] [place], [place] [id number] [place] [address] [phone] Allergies Active Allergy Reactions Severity Noted Date Comments No Known Allergies Other 12/19/2007 documented as of this encounter (statuses as of 05/24/2019) Medications Medication Sig Dispensed Refills Start End Date Status Date ASPIRIN 81 PO Take by 0 Active mouth. albuterol HFA Take 2 Puffs 1 Inhaler 0 Active (PROVENTIL HFA) 108 by inhalation 0 (90 Base) MCG/ACT EVERY FOUR Inhalation Aero HOURS SolnIndications: NEEDED COPD, mild (HCC) (shortness of breath, cough or wheeze). generic Nicotine Polacrilex 1 Lozenge by 360 Tab 1 Active (NICORETTE) 4 MG Mouth/Throat 0 Mouth/Throat Lozenge route NEEDED (smoking cessation). albuterol HFA Take 2 Puffs 1 Inhaler 0 05/24/19 Discontinued (PROVENTIL HFA) 108 by inhalation 8 20 (Reorder) (90 Base) MCG/ACT EVERY FOUR Inhalation Aero HOURS SolnIndications: NEEDED COPD exacerbation (shortness of (HCC) breath, cough or wheeze). generic ondansetron (ZOFRAN) Take 4 mg by 30 Tab 0 05/24/19 Discontinued 4 MG Oral mouth EVERY 9 20 TabIndications: EIGHT HOURS Nausea NEEDED (nausea). Omeprazole 40 MG Take 1 Cap by 30 Cap 1 05/24/19 Discontinued Oral CAPSULE DELAYED mouth DAILY. 9 20 RELEASEIndications: Epigastric pain cyclobenzaprine Take 1 Tab by 15 Tab 0 05/24/19 Discontinued (FLEXERIL) 10 MG mouth EVERY 9 20 Oral Tab BEDTIME NEEDED (neck pain). guaiFENesin-codeine Take 10 mL by 420 mL 0 05/24/19 Discontinued (ROBITUSSIN AC) mouth EVERY 9 20 100-10 MG/5ML Oral FOUR HOURS Solution NEEDED (coughing). Max Daily Amount: 60 mL. documented as of this encounter (statuses as of 05/24/2019) Active Problems Problem Noted Date S/P rotator cuff repair 11/21/2013 Spermatocele 12/19/2012 Family history of coronary artery disease 05/28/2011 Overview: Dad [place] age 65 Skull fracture 12/19/2007 Overview: Fell out of tree S/p craniotomy [facility] Loss of smell/taste Fracture of mandible, closed 12/19/2007 Overview: 1980s. Replaced inactive diagnosis Personal history of alcoholism 12/19/2007 Overview: Sober since 1999. Attneds AA and did ETOH rehab [facility] 1999. Tobacco use disorder, continuous 12/19/2007 Overview: 1 packs per day since 1966 Cut down to 3/4 packs per day 2009 Cocaine abuse 12/19/2007 Overview: Hx of seizure with crack cocaine abuse. Coronary artery disease 12/19/2007 Overview: S/p cocaine induced [place] S/p [facility] 1980s. Stress echocardiogram negative 2007 documented as of this encounter (statuses as of 05/24/2019) Resolved Problems Problem Noted Date Resolved Date Rotator cuff tear 05/29/2014 08/30/2017 Shoulder pain, right 02/26/2014 08/30/2017 Disorders of bursae and tendons in shoulder region, 05/26/2013 08/30/2017 unspecified Shoulder pain, left 04/24/2013 08/30/2017 Low back pain 04/12/2012 08/30/2017 Hepatomegaly 12/19/2007 05/28/2011 documented as of this encounter (statuses as of 05/24/2019) Immunizations Name Administration Dates Next Due Influenza (IM) Preservative Free 02/01/2019, 02/08/2018, 02/26/2015, 03/03/2013, 02/05/2012, 03/27/2011 Influenza (IM) W/Pres 02/22/2014 documented as of this encounter Social History Tobacco Use Types Packs/Day Years Used Date Current Every Day Smoker Cigarettes 0.5 30 Smokeless Tobacco: Never Used Comments: pt smokes one pack QOD Alcohol Use Drinks/Week oz/Week Comments No 0 Standard drinks or equivalent 0.0 15 years sober. Sex Assigned at Date Recorded Not on file Job Start Date Occupation Industry Not on file Not on file Not on file Travel History Travel Start Travel End No recent travel history available. documented as of this encounter Last Filed Vital Signs Vital Sign Reading Time Taken Comments Blood Pressure 120/76 05/24/2019 1:58 PM EST Pulse 66 05/24/2019 1:58 PM EST Temperature 36.3 05/24/2019 1:58 PM EST C (97.4 F) Respiratory Rate - - Oxygen Saturation 98% 05/24/2019 1:58 PM EST Inhaled Oxygen Concentration - - Weight 46.7 kg (103 lb) 05/24/2019 1:58 PM EST Height 152.4 cm (5') 05/24/2019 1:58 PM EST Body Mass Index 20.12 05/24/2019 1:58 PM EST documented in this encounter Patient Instructions Patient InstructionsKelle Whiteside PA-C - 05/24/2019 2:00 PM EST1. Reassured patient, xray showed no spot on lungs, but irregularity of 5th posterior rib No need for referral to architectural sales consultant today Discussed using cool mist vaporizer at bedtime Escribed Albuterol inhaler, use before bed, rinse mouth after use 2. Strongly suggested stop smoking, patient says he is slowing weaning off Escribed nicorette lozenges 4mg F/U with DR. Mchugh as needed documented in this encounter Progress Notes Kelle Whiteside PA-C - 05/24/2019 2:00 PM EST PATIENT: Rick Aden : 1955 DATE OF SERVICE: 05/24/2019 REFERRING PRACTITIONER: Self-Referred PRIMARY CARE PROVIDER: Rohan Mchugh CHIEF COMPLAINT: Chief Complaint Patient presents with Referral pt sonny piedra referral to pulmonology due to Spot on his lung found last year, chronic cough andSOB Subjective HISTORY OF PRESENT ILLNESS: Rick Aden is a 64-y.o. male who presents for referral to pulmonology Says last year chest xray showed spot on lung -- concerned about this Xray Results: No acute cardiopulmonary disease is seen. Emphysematous change. Irregularity in right fifth rib posteriorly, indicating prior posttraumatic change. Discussed with patient no spot on lung, irregularity of 5th rib -- patient says he broke ribs many years ago Smoking 1/2 ppd -- has been cutting back, plans on stopped completely Asking for nicoterm lozenges and refill of albuterol inhaler Says at night when he lays down, hears wheezing Home heat is hot, forced air, not using humidifier Denies fever, chills, nausea, vomiting, diarrhea, chest pains, SOB Past Medical History: Diagnosis Date Back pain Fractures Generalized convulsive epilepsy Heart disease, unspecified History of mixed drug abuse (HCC) Intermediate coronary syndrome (HCC) Wears dentures Past Surgical History: Procedure Laterality Date CL REDUCT MANDIBLE FX Left 25 years ago with wires implanted CRANIOTOMY CRANIECTOMY TX REPAIR SLIDING INGUINAL HERNIA TX SHOULDER SURG PROC UNLISTED 07/05/13 left shoulder TX SHOULDER SURG PROC UNLISTED 06/06/14 right shoulder THIGH REATTACHMENT 25 years ago - deborah was placed & removed a year later WRIST STRUCTURE DIVISION Left 30 years ago Family History Problem Relation Age of Onset Heart Father Heart Brother Current Outpatient Medications Medication Sig albuterol HFA (PROVENTIL HFA) 108 (90 Base) MCG/ACT Inhalation Aero Soln Take 2 Puffs by inhalation EVERY FOUR HOURS NEEDED (shortness of breath, cough or wheeze). generic ASPIRIN 81 PO Take by mouth. No current facility-administered medications for this visit. Allergies Allergen Reactions Nka [No Known Allergies] Other Social History Socioeconomic History Marital status: Spouse name: Not on file Number of children: Not on file Years of education: Not on file Highest education level: Not on file Occupational History Not on file Social Needs Financial resource strain: Not on file Food insecurity Worry: Not on file Inability: Not on file Transportation needs Medical: Not on file Non-medical: Not on file Tobacco Use Smoking status: Current Every Day Smoker Packs/day: 0.50 Years: 30.00 Pack years: 15.00 Types: Cigarettes Smokeless tobacco: Never Used Tobacco comment: pt smokes one pack QOD Substance and Sexual Activity Alcohol use: No Alcohol/week: 0.0 standard drinks Comment: 15 years sober. Drug use: No Comment: Hx. of drug abuse Sexual activity: Yes Partners: Female Lifestyle Physical activity Days per week: Not on file Minutes per session: Not on file Stress: Not on file Relationships Social connections Talks on phone: Not on file Gets together: Not on file Attends jainism service: Not on file Active member of club or organization: Not on file Attends meetings of clubs or organizations: Not on file Relationship status: Not on file Intimate partner violence Fear of current or ex partner: Not on file Emotionally abused: Not on file Physically abused: Not on file Forced sexual activity: Not on file Other Topics Concern Back Care Not Asked Bike Helmet Not Asked Blood Transfusions Not Asked Caffeine Concern No Exercise Yes Comment: moves all day at work in [employer] at [employer] Hazards Not Asked International Travel Not Asked Service Not Asked Occupational Exposure Not Asked Seat Belt Not Asked Self-Exams Not Asked Sleep Concern No Special Diet No Stress Concern No Weight Concern No Social History Narrative Lives in [facility] REVIEW OF SYSTEMS: Skin: negative skin lesions Eyes: negative visual blurring Ears/Nose/Throat: negative rhinorrhea, sore throat, sinus pressure, post nasal drip Respiratory: negative cough. Positive mild wheezing at night Cardiovascular: negative chest pain Gastrointestinal: negative abdominal pain, constipation, diarrhea, nausea or vomiting Genitourinary: negative burning on urination, dysuria or vaginal discharge Musculoskeletal: positive arthritis/joint pain Neurologic: negative numbness or tingling of feet or hands Psychiatric: negative anxiety Hematologic/Lymphatic/Immunologic: negative allergies Endocrine: negative diabetes or hot flashes/sweats Objective PHYSICAL EXAMINATION: VITALS: BP 120/76 (BP Location: Left arm, Patient Position: Sitting) | Pulse 66 | Temp 97.4 F(36.3 C) | Ht 5' (1.524 m) | Wt 103 lb (46.7 kg) | SpO2 98% | BMI 20.12 kg/m Body mass index is 20.12 kg/m. General appearance: alert, no distress, cooperative, oriented times 3 Skin: Skin color, texture, turgor normal. No rashes or lesions. Head: Normocephalic. Scattered healed scars skull fracture many years ago Eyes: conjunctivae/corneas clear. PERRL, EOM's intact. Nose/Sinuses: mucosa normal, no rhinorrhea Oropharynx: positive findings: mild oropharyngeal erythema, post nasal drip present Neck: Neck supple, FROM. No cervical or supraclavicular adenopathy. Lungs: mild expiratory wheeze present right upper Heart: RRR. No murmur, clicks or gallops. No peripheral edema . IMPRESSION: ICD-9-CM ICD-10-CM 1. COPD, mild ([facility]) 496 J44.9 albuterol HFA (PROVENTIL HFA) 108 (90 Base) MCG/ ACT Inhalation Aero Soln 2. Tobacco use disorder, continuous 305.1 F17.209 Plan PLAN: 1. Reassured patient, xray showed no spot on lungs, but irregularity of 5th posterior rib No need for referral to architectural sales consultant today Discussed using cool mist vaporizer at bedtime Escribed Albuterol inhaler, use before bed, rinse mouth after use 2. Strongly suggested stop smoking, patient says he is slowing weaning off Escribed nicorette lozenges 4mg F/U with DR. Mchugh as needed Author: Kelle Whiteside PA-C 05/24/2019 14:03 documented in this encounter Plan of Treatment Health Maintenance Due Date Last Done Comments PNEUMOCOCCAL 0-64 YRS (1963 1 - PPSV23) DTaP/Tdap/Td Vaccines ( - 01/28/1968 Tdap) ZOSTER IMMUNIZATION SERIES 2007 (1 of 2) LIPID DISORDER SCREENING 02/08/2019 02/08/2018, 02/26/2015, 05/28/2011, Additional history exists DEPRESSION SCREENING 02/02/2020 02/01/2019 Colonoscopy 11/11/2021 11/11/2016, 07/23/2011 (Previously completed) INFLUENZA VACCINE Completed 02/01/2019, 02/08/2018, 02/26/2015, Additional history exists HEPATITIS A IMMUNIZATION Aged Out No longer eligible SERIES based on patient's age to complete this topic HPV IMMUNIZATION SERIES Aged Out No longer eligible based on patient's age to complete this topic MENINGOCOCCAL VACCINE IMM Aged Out No longer eligible based on patient's age to complete this topic documented as of this encounter Goals Goal Patient Goal Associated Recent Patient-Stated? Author Type Problems Progress Smoking COPD No Abran Mchugh MD Note: This is an individualized treatment (COPD) goal for Rick Aden: Quit smoking immediately! Your provider has information and resources that may help you to quit. Keep immunizations current Lifestyle Rohan Garcia MD Note: This is an individualized lifestyle goal for Rick Aden: Please be sure to keep up-to-date on recommended immunizations. For example, this would include a yearly influenza vaccine. Immunization status can be seen by looking at the Health Maintenance sections of your e[facility], Plan of Care, and any After Visit Summaries. Take all prescribed medications as Self-management Rohan Garcia MD directed Note: This is an individualized self-management goal for Rick Aden: Please take all prescribed medications as directed. 1. Do not skip doses. If you cannot afford your medications, talk with your doctor. 2. Use a pill reminder system such as a pill box if needed. Your pharmacist can help you with this. 3. Contact your Pharmacy 5 days before your medication runs out. If you cannot take your medications for any reasons, talk with your doctor. 4. Please bring all of your medication bottles and inhalers (or a list of all your medications/inhalers) with you to every visit. Potential barriers to meeting all of your care plan goals will continue to be addressed on an ongoing basis. documented as of this encounter Implants Implanted Type Area Information Systems Analyst Device Shelf Model / Identifier Expiration Date Serial / Lot Lisseth Crossft 5.5mm Suture Ector - [id number] Left: LINTEC 11/13/2014 [id number] / Implanted: Qty: 1 on 07/05/2013 by Mani Carrillo MD at [facility] / [id number] Description:ref# [id number] Implant One Of A Kind - [id number] Left: Shoulder ARTHREX 09/13/2014 AR- [id number] / Implanted: Qty: 1 on 07/05/2013 by Mani Carrillo MD at [facility]1927[facility] / [id number] Description:SUTURE ANCHOR BIOCORKSCREW VENTED Fiberwire #2 - [id number] Left: Shoulder ARTHREX [id number] / Implanted: Qty: 1 on 07/05/2013 by Mani Carrillo MD at [facility] / Fiberwire #2 - [id number] ARTHREX 10/15/2018 [id number] / Implanted: Qty: 1 on 06/06/2014 at [facility] / [id number] Suture Ector Bio Cork Screw Vented ARTHREX 09/13/2014 / Implanted: Qty: 1 on 06/06/2014 by Mani Carrillo MD at [id number] / [id number] Description:shoulder documented as of this encounter Results Not on filedocumented in this encounter Visit Diagnoses Diagnosis COPD, mild (HCC) Chronic airway obstruction, not elsewhere classified Tobacco use disorder, continuous Tobacco use disorder documented in this encounter Insurance Payer Benefit Plan / Subscriber ID Effective Dates Phone Address Type Group LAKESHA BELLAMY xxxxxxxxxxxx 2017-Present Lakesha MCDONALD PPO Guarantor Name Account Type Relation to Date of Phone Billing Patient Address Rick Aden Personal/Family 1955 [address] (Home) [place], [place] [phone] (Work) documented as of this encounter Advance Directives Type Date Recorded 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
--- NOTE | 2019-07-04 13:24 | ED ---
HPI Chest Pain - HPI Summary HPI Summary: 64 year [place] [facility] [place] by complains of intermittent episodes of mid to left sided chest pain and left arm tingliness for several weeks. Patient usually has symptoms after shoveling snow. He states he was shoveling today 07/04/2019 1230 and developed chest pain and arm tingliness which lasted for 20 minutes and has since resolved. Patient reports light headedness and dizziness. Patient denies fever and any new cough. Patient additionally complains of suprapubic pain and nausea for several weeks. Patient he had hernia repair surgery years ago [place] [facility] [place] The patient rates the pain 3 /10 in severity. Symptoms aggravated by exertion. Symptoms alleviated by nothing. Medications reviewed. Takes aspirin 81 mg daily. Hx OK, hx seizures, hx COPD, hx substance abuse. Patient denies drinking ETOH and using recreational drugs. He admits to smoking cigarettes. - History of Current Complaint Chief Complaint: EDChestPainROMI Time Seen by Provider: 07/04/19 13:16 Hx Obtained From: Patient Onset/Duration: Started Weeks Ago, Still Present Timing: Intermittent Current Severity: Mild Pain Intensity: 3 Pain Scale Used: 0-10 Numeric Chest Pain Radiates: Yes Chest Pain Radiates To:: Arm - left Aggravating Factor(s): Exertion Alleviating Factor(s): Nothing Associated Signs and Symptoms: Positive: Negative - fever, cough, Dizziness, Lightheadedness, Nausea, Other: - suprapubic pain - Allergy/Home Medications Allergies/Adverse Reactions: Allergies Allergy/AdvReac Type Severity Reaction Status Date / Time No Known Allergies Allergy Verified 01/15/19 16:06 PMH/Surg Hx/FS Hx/Imm Hx Endocrine/Hematology History: Denies: Hx Diabetes, Hx Thyroid Disease Cardiovascular History: Reports: Hx Coronary Artery Disease - CAD, Hx Myocardial Infarction Respiratory History: Denies: Hx Asthma, Hx Chronic Obstructive Pulmonary Disease (COPD), Other Respiratory Problems/Disorders GI History: Denies: Hx Ulcer, Other GI Disorders History: Denies: Hx Renal Disease Musculoskeletal History: Reports: Hx Arthritis - LEFT WRIST Sensory History: Denies: Hx Contacts or Glasses, Hx Hearing Aid Opthamlomology History: Denies: Hx Contacts or Glasses Neurological History: Reports: 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 ALCOHOL Denies: Other Neuro Impairments/Disorders - Surgical History Surgery Procedure, Year, and Place: , SKULL, JAW, NOSE, LEFT WRIST, RIGHT LEG FROM A FALL, [facility]. hernia repair Hx Anesthesia Reactions: No Infectious Disease History: No Infectious Disease History: Denies: Hx Hepatitis, Hx Human Immunodeficiency Virus (HIV), Traveled Outside the [place] in Last 30 Days - Family History Known Family History: Positive: Hypertension - Social History Alcohol Use: None Alcohol Amount: sober since 1998 Hx Substance Use: Yes Substance Use Comment - Amount & Last Used: sober since 1998 Hx Tobacco Use: Yes Smoking Status (MU): Heavy Every Day Tobacco Smoker Type: Cigarettes Amount Used/How Often: 1 PPD Review of Systems Negative: Fever Positive: Chest Pain Negative: Cough Positive: Nausea, Other - suprapubic pain Neurological/Mental Status: Other - left arm tingliness, light headedness, dizziness All Other Systems Reviewed And Are Negative: Yes Physical Exam - Summary Physical Exam Summary: Constitutional: Well-developed, Well-nourished, Alert. (-) Distressed Skin: Warm, Dry HENT: Normocephalic; Atraumatic Eyes: Conjunctiva normal Neck: Musculoskeletal ROM normal neck. (-) JVD, (-) Stridor, (-) Tracheal deviation Cardio: Rhythm regular, rate normal, Heart sounds normal; Intact distal pulses; The pedal pulses are 2+ and symmetric. Radial pulses are 2+ and symmetric. (-) Murmur Pulmonary/Chest wall: Effort normal. (-) Respiratory distress, (-) Wheezes, (-) Rales Abd: Soft, (-) tenderness, (-) Distension, (-) Guarding, (-) Rebound Musculoskeletal: (-) Edema Lymph: (-) Cervical adenopathy Neuro: Alert, Oriented x3 Psych: Mood and affect Normal Triage Information Reviewed: Yes Vital Signs On Initial Exam: Initial Vitals Temp Pulse Resp BP Pulse Ox 97.3 F 84 20 146/89 99 07/04/19 13:08 07/04/19 13:08 07/04/19 13:08 07/04/19 13:08 07/04/19 13:08 Vital Signs Reviewed: Yes Procedures - Sedation Patient Received Moderate/Deep Sedation with Procedure: No Diagnostics - Vital Signs Vital Signs Temp Pulse Resp BP Pulse Ox 07/04/19 13:08 97.3 F 84 20 146/89 99 - Laboratory Result Diagrams: 07/04/19 13:16 07/04/19 13:16 Lab Statement: Any lab studies that have been ordered have been reviewed, and results considered in the medical decision making process. - Radiology CXR Radiology Interpretation Completed By: Radiologist - INTERVAL DEVELOPMENT OF A 1.2 CM NODULE OF THE LEFT UPPER LUNG. RECOMMEND CONSIDERATION OF FURTHER EVALUATION WITH CONTRAST-ENHANCED CT OF THE CHEST. ED physician has reviewed this report. - CT Chest CT Interpretation Completed By: Radiologist - Left hilar mass with encasement and filling of left upper lobe bronchus. Peripheral nodule measuring 1.1 cm is again identified. Emphysematous changes are noted. Right infrahilar nodule posteriorly with calcification measuring up to 1.6 cm likely is a benign finding. The visualized abdominal organs are unremarkable. Emphysematous changes in the lung ruvalcaba are noted. There is suggestion of a spiculated nodule in the left upper lobe peripherally measuring approximately 1.2 cm. No pleural fluid is identified. Left renal cyst is noted. ED physician has reviewed this report. - EKG 1304 Cardiac Rate: NL - 83 BPM EKG Rhythm: Sinus Rhythm Summary of EKG Findings: Borderline ST elevation anterior lateral leads. Similar to prior ECG dated 11/02/2014. ED physician has reviewed and interpreted this EKG Chest Pain Course/Dx - Course Course Of Treatment: 64 y/o M with cardiac hx c/o intermittent episodes of mid to left sided chest pain and left arm tingliness for several weeks. Patient usually has symptoms after shoveling snow. He shoveled some snow today 2019 1230 and developed chest pain and arm tingliness which lasted for 20 minutes and has since resolved. Patient reports light headedness and dizziness. Patient additionally c/o suprapubic abdominal pain and nausea for several weeks. Hx hernia repair surgery. Physical exam unremarkable. Bloodwork results with no significant abnormalities except for BUN/creatinine 21.0. First troponin 0.01. Second troponin 0.00. An EKG shows sinus rhythm 83 BPM, borderline ST elevation anterior lateral leads, similar to prior ECG dated 2014. CXR shows INTERVAL DEVELOPMENT OF A 1.2 CM NODULE OF THE LEFT UPPER LUNG. RECOMMEND CONSIDERATION OF FURTHER EVALUATION WITH CONTRAST-ENHANCED CT OF THE CHEST. Chest CT shows Left hilar mass with encasement and filling of left upper lobe bronchus. Peripheral nodule measuring 1.1 cm is again identified. Emphysematous changes are noted. Right infrahilar nodule posteriorly with calcification measuring up to 1.6 cm likely is a benign finding. The visualized abdominal organs are unremarkable. Emphysematous changes in the lung ruvalcaba are noted. There is suggestion of a spiculated nodule in the left upper lobe peripherally measuring approximately 1.2 cm. No pleural fluid is identified. Left renal cyst is noted. Discussed with Dr. Penn , hospitalist, who agrees to admit patient. The patient will be admitted to the hospitalist. The patient is agreeable with this plan. - Diagnoses Provider Diagnoses: Exertional chest pain, Lung nodule - Provider Notifications Discussed Care Of Patient With: Bruce Penn Time Discussed With Above Provider: 17:10 Instructed by Provider To: Other - Dr. Penn hospitalist, agrees to admit patient Discharge ED - Sign-Out/Discharge Documenting (check all that apply): Patient Departure - Discharge Plan Condition: Stable Disposition: ADMITTED TO [facility] Referrals: Rohan Mchugh MD [Primary Care Provider] - - Billing Disposition and Condition Condition: STABLE Disposition: Admitted to [facility] - Attestation Statements Document Initiated by Devi: Yes Documenting Scribe: Delia Renee Provider For Whom Devi is Documenting (Include Credential): Celestino Sterling DO [place] Attestation: Delia Stewart scribed for Celestino Sterling DO on 07/04/19 at 1827. Scribe Documentation Reviewed: Yes Provider Attestation: The documentation as recorded by the Delia gonsalves accurately reflects the service I personally performed and the decisions made by Celestino deluca DO Status of [place]rib[place] Document: Viewed
[2019-07-04 13:26] LABS: ABS Monocytes 0.4 10^3/ul (0-0.8); ABS Neutrophils 6.2 10^3/ul (1.5-7.7); Eosinophil % 0.6 %; Hematocrit 45 % (42-52); Hemoglobin 15.5 g/dL (14.0-18.0); Lymphocyte % 12.9 %; Mean Corpuscular HGB Conc 35 g/dL (31-36); Mean Corpuscular Hemoglobin 31 pg (27-31); Mean Corpuscular Volume 90 fL (80-94); Mean Platelet Volume 7.6 fL (7.4-10.4); Platelet Count 289 10^3/uL (150-450); Red Blood Count 4.97 10^6 /uL (4.18-5.48); Red Cell Distribution Width 14 % (10-15); White Blood Count 7.6 10^3/uL (3.5-10.8)
[2019-07-04 13:31] LABS: INR 0.93 (0.82-1.09)
[2019-07-04 13:41] LABS: Albumin 4.3 g/dL (3.2-5.2); Calcium 9.5 mg/dL (8.6-10.3); Potassium 4.1 mmol/L (3.5-5.0); Total Bilirubin 0.4 mg/dL (0.2-1.0)
[2019-07-04 13:47] LABS: Albumin/Globulin Ratio 1.6 (1-3); EGFR African American 86.6 (>60); EGFR Non-African American 71.6 (>60); Globulin 2.7 g/dL (2-4)
[2019-07-04 13:48] LABS: Troponin I 0.01 ng/mL (<0.03)
[2019-07-04] MEDS ORDERED: NS 0.9% 1000 ML** 1,000 ML IV ONE (14:10)
[2019-07-04] MEDS ORDERED: Iohexol 300* (CONTRAST) 10 ML SDV IV ONE (14:20)
[2019-07-04] MEDS ORDERED: Senna TAB 8.6 mg* TAB PO PRN (18:06)
[2019-07-04] MEDS ORDERED: Acetaminophen TAB* 325 MG PO PRN (18:06)
[2019-07-04] MEDS ORDERED: Ondansetron INJ* 2 MG/ML VIAL IV PRN (18:06)
[2019-07-04] MEDS ORDERED: Albuterol HFA INHALER* 8 gm MDI INH PRN (18:21)
[2019-07-04] MEDS ORDERED: Enoxaparin(*) 40 MG/0.4 ML SYR SUBCUT SCH (19:30)
--- NOTE | 2019-07-04 20:10 | HP ---
CC: Dr. Mchugh * HISTORY AND PHYSICAL: DATE OF ADMISSION: 07/04/19 ATTENDING PHYSICIAN WHILE IN THE HOSPITAL: Dr. Powell * (dictated by WALTER Berkowitz). PRIMARY CARE PROVIDER: Dr. Mchugh. CHIEF COMPLAINT: Chest pain while shoveling snow. HISTORY OF PRESENT ILLNESS: Rick Aden is a 64-year-old white male with past medical history significant for prior CO in the in the setting of cocaine use, COPD and tobacco use, who presents to the emergency department for exertional chest pain while shoveling snow. 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 Associated with this, he was feeling short of breath, nausea, and by the end of this episode was feeling presyncopal, though he does deny syncope. This episode resolved with cessation of the activity and while resting. He does mention though that sometimes at rest over the last several weeks he will have an episode of similar chest pain without associated shortness of breath for approximately 5 to 6 minutes. It goes away on its own without any changes from himself. He remembers most recently having this chest pain while shoveling heavy snow approximately a week and a half ago when there was a snowstorm as well. The patient denies any recent abdominal pain, but he does mention that he is feeling some pain at the site of his left inguinal hernia repair that is going on for several weeks. He denies abdominal pain, vomiting, fever, chills. The patient tells me he does not feel any of this chest pain when just walking several blocks or walking uphill. He additionally tells me he feels some visual changes, but this was blurriness while he was feeling presyncopal. The patient mentions that he was diagnosed with an CO in the at [facility]. He is telling me at that time he was using cocaine heavily. He does not believe that he had a stent placed and he tells me he had angioplasty. He has been taking a daily baby aspirin since that time in the . He tells me he has been clean and does not use any illicit substances or alcohol in the last 20 years. EMERGENCY DEPARTMENT COURSE: When the patient arrived to the emergency department, his vital signs were temperature 97.3 degrees Fahrenheit, pulse rate 84, respiratory rate 20, oxygen saturation 99% on room air, blood pressure 146/89. The patient was given a liter of normal saline and the hospitalists were asked to evaluate the patient for admission. PAST MEDICAL HISTORY: 1. COPD, with use of p.r.n. albuterol infrequently. 2. Previous history of CO in the setting of cocaine use. 3. Tobacco use. PAST SURGICAL HISTORY: 1. Left inguinal hernia repair. 2. Left wrist, right femur, jaw surgery, and skull fracture repair after trauma of falling from 70 feet at age 27, at [facility]. HOME MEDICATIONS: 1. Aspirin 81 mg p.o. daily. 2. Albuterol inhaler 1 puff q.4 hours p.r.n. shortness of breath/wheezing. ALLERGIES: No known drug allergies. FAMILY HISTORY: Father of an CO at age mid to late 60s. Mother is of unclear causes. The patient is unclear about medical history of his mother. SOCIAL HISTORY: The patient has been smoking for approximately 45 years, currently smokes 1 pack per day. Denies alcohol use or illicit drug use. Does have prior history of cocaine use, but has not used cocaine in approximately 20 years. 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 He is and has no children. His surrogate medical decision maker should he need one is his , [place] Sam. Her phone number is [phone]. REVIEW OF SYSTEMS: An 11-point review of systems was completed and all pertinent positives and negatives are above in the HPI. All other systems are negative. PHYSICAL EXAMINATION GENERAL: A thin, elderly white male, lying upright in hospital bed, appearing comfortable, in no acute distress. HEENT: Eyes: PERRL. Sclerae anicteric. ENT: Mucous membranes moist. LUNGS: Faint inspiratory wheeze in bilateral lower lung ruvalcaba and otherwise clear to auscultation. CARDIO: Regular rate and rhythm without murmurs, rubs, or gallops. No tenderness throughout anterior chest with palpation. ABDOMEN: Normoactive bowel sounds x4 quadrants. The abdomen is soft, nontender , nondistended. No palpable hernias. EXTREMITIES: No clubbing, cyanosis, or edema. NEURO: The patient is alert and oriented x3. Able to move all extremities. Speech is clear. DIAGNOSTIC STUDIES/LAB DATA: White blood cell count 7.6, hemoglobin 15.5, hematocrit 45, platelet count 289. INR 0.93. Sodium 138, potassium 4.1, chloride 105, carbon dioxide 27, anion gap 6, BUN 22, creatinine 1.05, glucose 86, calcium 9.5. LFTs unremarkable. Troponin 0.01, 0.00. EKG: Normal sinus rhythm, rate 83 beats per minute, normal axis, isolated T- wave inversion in V1. No perceivable ST depressions or elevations. No other T- wave changes. Chest x-ray, impression: Interval development of 1.2 cm nodule of the left upper lung. Recommend consideration of further evaluation with CT of the chest. CT of the chest, impression: Left hilar mass with encasement and filling of left upper lobe bronchus. Peripheral nodule measuring 1.1 cm is again identified. Emphysematous changes are noted. Right infrahilar nodule posteriorly with calcification measuring up to 1.6 cm likely is a benign finding. Visualized abdominal organs are unremarkable. Emphysematous changes in the lung ruvalcaba are noted. There is suggestion of a spiculated nodule in the left upper lobe peripherally measuring approximately 1.2 cm. No pleural fluid is identified. Left renal cyst is noted. ASSESSMENT AND PLAN: Rick Aden is a 64-year-old white male with past medical history significant for prior myocardial infarction and chronic obstructive pulmonary disease, who presents to the emergency department for exertional chest pain. The patient will be admitted OBV for: 1. Exertional chest pain. The patient has been experiencing chest pain with exertion over the last several weeks, but additionally at rest as well. I am concerned that this may represent unstable angina considering these episodes while at rest. Therefore, the patient will be admitted for an acute coronary syndrome rule out. The patient has already had 2 troponins, which are negative. He will have an additional troponin and an additional EKG with his troponin and he will be monitored on telemetry. The patient will have an exercise nuclear stress test tomorrow and I will continue his home baby aspirin. The patient has a HEART score calculated at 5. His most significant risk factors include his family medical history and his current tobacco use. I will order a lipid panel for tomorrow as well as a hemoglobin A1c. 2. Pulmonary nodule. The patient has a new pulmonary nodule and additionally has associated hilar masses. Given the patient's 45-year smoking history, I do have concern for malignancy. I will discuss these findings with our cable armorer tomorrow as I suspect that likely outpatient biopsy will be necessary for workup of this. 3. Tobacco use. I will order the patient a nicotine patch while he is in the hospital if needed. 4. Chronic obstructive pulmonary disease. The patient's only medication that he takes is p.r.n. albuterol, which he does not need very frequently and I will continue this while he is in the hospital. 5. FEN: The patient may have a heart-healthy diet. Electrolytes are within normal limits and there is no need for repletion. I see no need for any further IV fluids at this time. 6. DVT prophylaxis: The patient has a DVT risk score of 2 and I will order Lovenox 40 mg subcu daily. 7. Code status: The patient is a full code. TIME SPENT: Approximately 50 minutes was spent on this admission, approximately half this time was spent at bedside evaluating the patient and discussing the plan of care. This case has been reviewed with my attending, Dr. Emily Powell, and she agrees with this plan of care. WALTER BERKOWITZ [id number]/[facility] #: [id number] MTDValente
[2019-07-04] MEDS ORDERED: guaiFENesin ER TAB 600 MG PO ONE (20:37)
[2019-07-05 06:47] LABS: ABS Basophils 0.1 10^3/ul (0-0.2); ABS Eosinophils 0.1 10^3/ul (0-0.6); ABS Lymphocytes 1.5 10^3/ul (1.0-4.8); ABS Monocytes 0.5 10^3/ul (0-0.8); ABS Neutrophils 2.8 10^3/ul (1.5-7.7); Eosinophil % 2.2 %; Hematocrit 41 % (42-52); Hemoglobin 14.3 g/dL (14.0-18.0); Lymphocyte % 29.9 %; Mean Corpuscular HGB Conc 35 g/dL (31-36); Mean Corpuscular Hemoglobin 32 pg (27-31); Mean Corpuscular Volume 90 fL (80-94); Mean Platelet Volume 7.6 fL (7.4-10.4); Nucleated Red Blood Cells % 0.1; Platelet Count 260 10^3/uL (150-450); Red Blood Count 4.54 10^6 /uL (4.18-5.48); Red Cell Distribution Width 14 % (10-15); White Blood Count 4.9 10^3/uL (3.5-10.8)
[2019-07-05 07:04] LABS: BUN/Creatinine Ratio 19.4 (8-20); Calcium 8.5 mg/dL (8.6-10.3); EGFR African American 83.8 (>60); EGFR Non-African American 69.3 (>60); Potassium 4.3 mmol/L (3.5-5.0)
[2019-07-05 07:37] LABS: TSH (Thyroid Stimulating Horm) 2.09 mcIU/mL (0.34-5.60)
[2019-07-05] MEDS ORDERED: Aspirin EC TAB* 81 MG TAB.EC PO SCH (09:00)
[2019-07-05 15:50] VITALS: BP 124/76
--- NOTE | 2019-07-05 17:03 | ECHO ---
*[facility]* [place] [address] Fax #: [phone] Transthoracic Echocardiogram Patient: Rick Aden : 1955 Study Date: 07/05/2019 Age: 64 Gender: M HR: 64 bpm Height: 62 in /157.5 cm BSA: 1.45 m^2 Weight: 104.8 lb /47.6 kg BMI: 19.2 kg/m^2 *Spa Director/Finance: Savi Núñez *Referring Physician: * O'Yolanda Rios *Reading Physician: * Tashia Gee MD Indications: Chest Pain, unspecified. History: PMH: Myocardial infarction. Risk factors: COPD, cocoaine abuse. Current tobacco use. Conclusions Summary: - Procedure narrative: The study was technically limited due to poor acoustic window availability and body habitus. Very small rib smaces. Apical images poor, parasternal and subcostal images good to excellent. - Left ventricle: Systolic function is normal. The estimated ejection fraction is 55-60%. - Right ventricle: Systolic function is mildly to moderately reduced, best seen on subcostal view. - Mitral valve: There is trace regurgitation. - Aortic valve: There is trace regurgitation. - Tricuspid valve: There is trace regurgitation. - Pulmonary arteries: Systolic pressure can not be accurately estimated. - No prior echocardiogram to compare. Study data: Transthoracic echocardiogram. Procedure: Transthoracic echocardiography was performed. The study was technically limited due to poor acoustic window availability and body habitus. Very small rib smaces. Complete 2D, spectral Doppler, and color flow Doppler. Location: Bedside. Patient status: Inpatient. Patient room number: 452. Rhythm: Normal sinus rhythm. Findings Left ventricle: The cavity size is normal. Wall thickness is normal. Systolic function is normal. The estimated ejection fraction is 55-60%. Septum appears dysychronous. Left ventricular diastolic function parameters are indeterminate. Right ventricle: The cavity size is normal. Systolic function is mildly to moderately reduced, best seen on subcostal view. Ventricular septum: The ventricular septum is normal. Left atrium: The atrium is normal in size. Right atrium: The atrium is normal in size. Atrial septum: No defect or patent foramen ovale is identified. Mitral valve: The valve is structurally normal. There is no evidence of stenosis. There is trace regurgitation. Aortic valve: The valve is trileaflet. The leaflets are normal thickness. There is no evidence of stenosis. There is trace regurgitation. Tricuspid valve: The valve is structurally normal. There is no evidence of stenosis. There is trace regurgitation. Pulmonic valve: The valve is structurally normal. There is no evidence of stenosis. There is trace regurgitation. Pericardium: There is no significant pericardial effusion. Pulmonary arteries: Systolic pressure can not be accurately estimated. Systemic veins: Inferior vena cava: The vessel is normal in size. There is (>= 50%) respiratory change in the IVC dimension. Pulmonary veins: The Pulmonary veins appear normal. Measurements Left ventricle Value Ref Aortic valve continued Value Ref YVETTE, LAX (L) 3.6 cm 4.2 - VTI, S 24.0 cm ----- 5.8 Mean grad, S 2.0 mm Hg ----- ESD, LAX 2.5 cm 2.5 - Peak grad, S 5.0 mm Hg ----- 4.0 DARNELL, VTI 1.91 cm^2 ----- FS, LAX 30 % 25 - 43 DARNELL, Vmax 1.92 cm^2 ----- PW, ED, LAX 1.0 cm 0.6 - 1.0 Mitral valve Value Ref FS 30 % 25 - 43 Peak E 0.64 m/sec ----- Mid-wall FS 11 % -------- Peak A 0.55 m/sec ----- PW, ED 1.0 cm 0.6 - Decel time 327 ms ----- 1.0 Peak E/A ratio 1.2 ----- PW/ID, ED 0.28 -------- E', med puja, TDI 7.9 cm/sec >=7.0 Pulmonic valve Value Ref E/e', med puja, TDI 8 -------- Peak v, S 0.46 m/sec - ---- Peak grad, S 1.0 mm Hg ----- LVOT Value Ref Diam, S 2.00 cm -------- Tricuspid valve Value Ref Area 3.1 cm^2 -------- TR peak v 2.02 m/sec <=2 .8 Peak dilma, S 0.67 m/sec -------- Peak RV-RA grad, S 16 mm Hg ----- Mean grad, S 1 mm Hg -------- Max TR dilma 2.02 m/sec ----- SV 46 ml -------- Aortic root Value Ref Ventricular septum Value Ref Root diam 3.5 cm <3. 7 IVS, ED (H) 1.1 cm 0.6 - 1.0 Ascending aorta Value Ref AAo AP diam, S 3.5 cm ----- Right ventricle Value Ref YVETTE, LAX 2.7 cm -------- Inferior vena cava Value Ref YVETTE minor ax, A4C 3.0 cm 1.9 - Diam 1.7 cm ----- mid 3.5 Left atrium Value Ref Vol/bsa, ES, 1-p 20 ml/m^2 12 - 37 A4C Aortic valve Value Ref Peak v, S 1.1 m/sec -------- Legend: (L) and (H) chandrakant values outside specified reference range. Prepared and electronically signed by Tashia Gee MD 07/05/2019 17:03
--- NOTE | 2019-07-05 23:24 | DS ---
CC: Dr. Mchugh; Dr. Call; Dr. Gee * DISCHARGE SUMMARY: DATE OF ADMISSION: 07/04/19 DATE OF DISCHARGE: 07/05/19 PROVIDER: WALTER Berkowitz ATTENDING PHYSICIAN WHILE IN THE HOSPITAL: Dr. Powell * (dictated by WALTER Berkowitz) PRIMARY CARE PROVIDER: Dr. Mchugh. PRIMARY DIAGNOSIS: Exertional angina, acute coronary syndrome ruled out. SECONDARY DIAGNOSES: 1. Previous myocardial infarction in the setting of cocaine use. 2. Chronic obstructive pulmonary disease. 3. Tobacco use. PERTINENT STUDIES WHILE IN THE HOSPITAL: Exercise nuclear medicine stress test , low risk by the exercise portion as well as by the radiologist read of nuclear scan. Transthoracic echocardiogram on 07/05/19, EF of 55% to 60%. No noted regional wall motion abnormalities. The study was technically limited due to acoustic window availability and body habitus. No significant valvular abnormalities. Please see full report for further details. Chest x-ray on 07/04/19: Interval development of a 1.2 cm nodule at the left upper lung (this is compared from prior study in September 2017). Chest CT on 07/04/19: Left hilar mass with encasement and filling of left upper lobe bronchus. Peripheral nodule measuring 1.1 cm is again identified. Emphysematous changes are noted. Right infrahilar nodule posteriorly with calcification measuring up to 1.6 cm likely is a benign finding. Visualized abdominal organs are unremarkable. Emphysematous changes in the lung ruvalcaba are noted. There is suggestion of a spiculated nodule in the left upper lobe peripherally measuring 1.2 cm. No pleural fluid is identified. Left renal cyst is noted. HISTORY OF PRESENT ILLNESS/HOSPITAL COURSE: Rick Aden is a 64-year-old white male with past medical history significant for prior OH approximately 25 years ago in the setting of cocaine use and COPD, who presents to the emergency department due to chest pain while shoveling snow. The patient has been having chest pain only with exertion such as shoveling snow and carrying heavy objects while he is at work that is essentially associated with short of breath, nausea , and presyncopal sensation. The patient does note that he once felt this at rest for approximately 5 to 6 minutes as well in the recent past. The patient does not follow with a local manager sustainability. He was admitted to the hospital due to concern for ACS. He was admitted on telemetry and overall had no findings and his EKGs were without any ischemic findings as well. His troponins were negative on 3 readings. His echocardiogram did not reveal any acute abnormalities that would explain this exertional chest pain and his stress test was low risk. I did discuss this case with Dr. Gee, who agreed that an outpatient workup is necessary to further evaluate this patient as his exertional chest pain is concerning, however, this inpatient workup has effectively ruled out ACS. I have low suspicion for any musculoskeletal contribution as the pain was not reproducible on my exam. It is possible that there may be some esophageal spasm causing this pain, however, it seems less likely considering it is mostly occurring with exertion. Additionally, he is aware of the pulmonary nodules associated hilar mass and understands that this will have to be worked up further as an outpatient. PHYSICAL EXAM ON DAY OF DISCHARGE: General: Thin, white male, lying upright in hospital bed, appearing comfortable, in no acute distress. Eyes: PERRLA, sclerae anicteric. Lungs: Clear to auscultation throughout. Cardio: Regular rate and rhythm without murmurs, rubs or gallops. No tenderness to palpation throughout the anterior chest. Abdomen: Soft. Extremities: No clubbing, cyanosis or edema. Neuro: The patient is alert and oriented x3. DISCHARGE PLAN: Discharge instructions: The patient is to follow up with Dr. Mchugh within a week. He will need outpatient follow up with Dr. Call to plan likely need for biopsy of this lung mass especially considering the association with the hilar masses. There is some concern for malignancy considering his 45- year history of smoking. The patient has been provided information for followup with [facility] Cardiology and Dr. Gee considering shes has been tangentially involved in this case. However, if this patient chooses to see a different manager sustainability, that is acceptable. Nonetheless, I recommend he see a manager sustainability within a month for further workup. He should adjust his activity level if he is experiencing this exertional chest pain with significant exertion at work. He is advised to return to emergency department if he is experiencing prolonged chest pain, difficulty breathing, loss of consciousness, severe abdominal pain or other concerning symptoms. DIET: Heart healthy diet. ACTIVITY: May return to normal activity as tolerated though should adjust activity as previously mentioned above. DISCHARGE MEDICATIONS: New Medications: None. Continued home medications: 1. Albuterol inhaler 1 puff inhaled q.4 hours p.r.n. shortness of breath/ wheezing. 2. Aspirin 81 mg p.o. daily. CONDITION ON DISCHARGE: Stable. DISPOSITION: Home. TIME SPENT: Approximately 35 minutes was spent on this discharge, approximately half of this time was spent at bedside evaluating the patient and discussing the plan of care. WALTER BERKOWITZ [id number]/CPS #: [id number] MTDD
== END 2019-07-05 18:00 | disposition home or self-care (01) ==
LOC: ED 13:00 → MEDTELE 18:06
PROVIDERS: ADMIT Physician Assistant; ATTEND Internal Medicine
DX: I20.9 Angina pectoris, unspecified (principal); I25.2 Old myocardial infarction; J44.9 Chronic obstructive pulmonary disease, unspecified; F17.210 Nicotine dependence, cigarettes, uncomplicated; G40.909 Epilepsy, unspecified, not intractable, without status epilepticus; Z79.82 Long term (current) use of aspirin; Z86.59 Personal history of other mental and behavioral disorders
CPT/HCPCS: 36415; 71045; 71260; 78452; 80048; 80053; 80061; 83036; 84443; 84484; 85025; 85610; 93005; 93017; 93306; 96360; 96372; 99284; A9270-GY; A9502; G0378; J1650; J2405; Q9967

== ENCOUNTER 2019-08-04 11:06 | Day surgery (SDC) | payer BC ==
[~2019-08-04 11:06] MED LIST: Buffered Lidocaine 1% SYRIN* 1 ML/SYRINGE INTRADERM ONE; Famotidine IV* 10 MG/ML 2 ML (20 mg) IV ONE; Lactated Ringers 1000 ML Bag* 1,000 ML IV SCH
[2019-08-04] MEDS ORDERED: Famotidine IV* 10 MG/ML 2 ML (20 mg) ONE (12:16)
[2019-08-04] MEDS ORDERED: Rocuronium* 10 MG/ML VIAL ONE (13:01)
[2019-08-04] MEDS ORDERED: Midazolam* 1 MG/ML 2 ML VIAL (2 MG) ONE (13:01)
[2019-08-04] MEDS ORDERED: fentaNYL* 50 MCG/ML 2 ML VIAL (100 MCG VIAL) ONE (13:01)
[2019-08-04] MEDS ORDERED: Propofol* 10 MG/ML 20 ML BTL ONE (13:01)
[2019-08-04] MEDS ORDERED: Benzocaine/Butamben/Tetracain (CETACAINE - SINGLE USE) 5 gm TOPICAL ONE (13:14)
[2019-08-04] MEDS ORDERED: Succinylcholine* 20 MG/ML 10 ML VIAL ONE (14:13)
[2019-08-04] MEDS ORDERED: fentaNYL* 50 MCG/ML 2 ML VIAL (100 MCG VIAL) IV PRN (14:19)
[2019-08-04] MEDS ORDERED: Ondansetron INJ* 2 MG/ML VIAL IV PRN (14:19)
[2019-08-04] MEDS ORDERED: Naloxone* 0.4 MG/ML 1 ML VIAL IV PRN (14:19)
[2019-08-04] MEDS ORDERED: Sugammadex * 500 MG/5 ML VIAL IV PUSH ONE (14:48)
[2019-08-04 16:03] VITALS: BP 152/89
--- NOTE | 2019-08-04 16:53 | BRIEFOPN ---
Brief Operative/Procedure Note - Operation Details Pre-Op Diagnosis: Lung mass Post-Op Diagnosis: Possible malignancy Procedures: Bronchoscopy with endobronchial biopsy, bronchoalveolar lavage. FNA from R4, station 7, L4, endobronchial lesion from KAYLIE. Surgeon(s)/Proceduralists: Oneyda Anesthesia: GA- Dr Paula Estimated Blood Loss: Negligable Findings: Endobronchial lesion in KAYLIE bleeding with minimal suction, KAYLIE bronchus completely occluded Specimen(s)/Culture(s) Description: Cytology, Pathology Complications: None
--- NOTE | 2019-08-04 17:24 | PRO ---
BRONCHOSCOPY REPORT: DATE OF PROCEDURE: 08/04/19 PROCEDURE PERFORMED: Bronchoscopy with endobronchial ultrasound-guided fine needle aspiration of mediastinal nodes and endobronchial biopsy. ANESTHESIA: General anesthesia. ANESTHESIOLOGIST: Dr. Paula. DESCRIPTION OF PROCEDURE: Informed consent was obtained from the patient prior to the procedure after all the risks and benefits were thoroughly explained. Appropriate time-out was agreed on by attending staff prior to the procedure. The patient noted to have endobronchial lesion recently. Bronchoscopy was indicated for evaluation of malignancy. The patient was intubated with the 8.5 endotracheal tube prior to the procedure. Olympus bronchoscope was inserted through ET tube for airway inspection. No endobronchial lesions were noted on the right side. Thin secretions were noted and were suctioned out. Bronchoscope was then advanced into the left bronchial tree which was inspected. The patient noted to have endobronchial lesion leading up to the left upper lobe bronchus with near complete occlusion of the area. Bronchoscope could not be advanced further into that bronchus. The patient noted to have endobronchial lesion, which was bleeding with minimal suction in the area. Lesion appeared very necrotic. Bronchoscope was then withdrawn and EBUS bronchoscope was inserted. R4 was not enlarged and was sampled with 1 pass. Rapid on-site evaluation revealed bronchial cells. Station 7 was sampled with 1 pass. Rapid on-site evaluation revealed lymphatic tissue with no malignant cells. L4 was sampled with 2 passes. Rapid on-site evaluation revealed some malignant cells. Bronchoscope was then advanced into the endobronchial lesion area. Four passes were performed in that area, which also confirmed some atypical cells concerning for malignancy. Rest of the specimen was placed in formalin. Air dried cells were also prepared. Bronchoscope was then withdrawn and Olympus bronchoscope was reinserted. Endobronchial biopsies and washings were obtained from left upper lobe area. The patient tolerated the procedure well. The patient was extubated and seen in Recovery in optimal condition. [id number]/[facility] [place] #: [id number] [facility]
== END 2019-08-04 16:20 | disposition home or self-care (01) ==
LOC: OR 11:06
PROVIDERS: ATTEND Internal Medicine
DX: C34.12 Malignant neoplasm of upper lobe, left bronchus or lung (principal); I25.10 Atherosclerotic heart disease of native coronary artery without angina pectoris; I25.2 Old myocardial infarction; J43.9 Emphysema, unspecified; F17.210 Nicotine dependence, cigarettes, uncomplicated; F19.21 Other psychoactive substance dependence, in remission
CPT/HCPCS: 81445; 88172; 88173; 88305; 88341; 88342; 88360; J0330; J2250; J2704; J3010

== ENCOUNTER 2019-08-05 09:07 | Emergency (ER) | payer BC ==
--- OUTSIDE RECORDS SUMMARY | 2019-08-05 09:15 | XMS REPORT | Continuity of Care Document ---
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 Medicine Problems Description No Information Available Social History Type Date Description Comments Sex Unknown Tobacco Use Start: Unknown Patient is a current cigarette smoker, smokes every day Tobacco Use Start: Unknown Current Cigarette since he was 18 Smoker 1 Pack Daily Tobacco Use Start: Unknown current cigarette 3/4 pack since 2009 smoker Smoking Status Reviewed: 07/18/19 current cigarette 3/4 pack since 2009 smoker ETOH Use Denies alcohol use Tobacco Use Start: Unknown Patient is a current smoker, smokes every day Recreational Drug Use Denies Drug Use Tobacco Use Start: Unknown Heavy tobacco smoker (more than 10 cigarettes/day) Exercise Type/Frequency Exercises regularly Allergies, Adverse Reactions, Alerts Description No Known Drug Allergies Medications Active Medications SIG Qnty Indications Ordering Provider Date Albuterol Sulfate HFA Unknown 108(90Base) mcg/Act Aerosol Aspirin 81 1 by mouth every Unknown 81mg Tablets DR day Immunizations Description No Information Available Vital Signs Date Vital Result Comment 07/18/2019 8:20am Height 60 inches 5'0" Weight 103.00 lb Heart Rate 72 /min BP Systolic Sitting 122 mmHg BP Diastolic Sitting 80 mmHg O2 % BldC Oximetry 97 % BMI (Body Mass Index) 20.1 kg/m2 Results Description No Information Available Procedures Date Code Description Status 07/05/2019 22617 ECHO Transthorasic Realtime 2D W Doppler & Color Flow Hosp Completed 07/05/2019 61832 Treadmill Interp/Report Only Completed 07/05/2019 91389 Stress Test Supervsn W/Out I/R Completed Medical Devices Description No Information Available Encounters Type Date Location Provider Dx Diagnosis Office Visit 07/18/2019 Pulmonology And Melita Call, R91.8 Other nonspecific 9:00a [facility] Services Of abnormal finding of [facility] lung field J43.8 Other emphysema F17.200 Nicotine dependence, unspecified, uncomplicated Office Visit 07/05/2019 1:28p [facility] Yolanda I20.9 Angina pectoris, Assoc,pc [facility]'l[facility], PA-C unspecified Hospitalists Office Visit 07/04/2019 1:27p [facility] Yolanda R07.9 Chest pain, Assoc,pc O'lolis, PA-C unspecified Hospitalists R91.1 Solitary pulmonary nodule F17.200 Nicotine dependence, unspecified, uncomplicated Assessments Date Code Description Provider 07/18/2019 R91.8 Other nonspecific abnormal finding Melita Call MD of lung field 07/18/2019 J43.8 Other emphysema Melita Call MD 07/18/2019 F17.200 Nicotine dependence, unspecified, Melita Call MD uncomplicated 07/05/2019 R07.9 Chest pain, unspecified Tashia Gee M.D. 07/05/2019 R07.9 Chest pain, unspecified Curt Puri MD, [facility] 07/05/2019 I20.9 Angina pectoris, unspecified Yolanda O'lolis, PA-C 07/04/2019 R07.9 Chest pain, unspecified Yolanda O'lolis, PA-C 07/04/2019 R91.1 Solitary pulmonary nodule Yolanda O'lolis, PA-C 07/04/2019 F17.200 Nicotine dependence, unspecified, Yolanda O'lolis, PA-C uncomplicated Plan of Treatment Future Appointment(s):08/11/2019 9:00 am - Melita Call MD at [facility]08/04/2019 1:00 pm - Melita Call MD at [facility]07/18/2019 - Melita Call, MDR91.8 Other nonspecific abnormal finding of lung hmrqoI53.8 Other xqdbpdmzeZ56.200 Nicotine dependence, unspecified, uncomplicated Functional Status Description No Information Available Mental Status Description No Information Available Referrals Description No Information Available
--- OUTSIDE RECORDS SUMMARY | 2019-08-05 09:15 | XMS REPORT | Summary of Care ---
:1955 Author Organization [facility] Address [address] [place] [address] Care Team Providers Name Role Phone Rohan Mchugh Primary Care Provider Reason for Referral Refer to Department Only (Routine) Status Reason Specialty Diagnoses / Referred By Referred To Procedures Contact Contact Pending Review PULMONARY Diagnoses Pulmonary nodule, left Rohan Mchugh MD [address] [place] [address] Call Reason for Visit Reason Comments Transitional Care Management Patient [place] [facility] for extetional ngina. Encounter Details Date Type Department Care Team Description 07/11/2019 Office Visit [facility] Rohan Mchugh, Tobacco use disorder, continuous (Primary Dx); Medicine Pulmonary nodule, left; [address] [place] [address] Non-cardiac chest pain; [place] [address] Other emphysema ([facility]) [phone] Allergies Active Allergy Reactions Severity Noted Date Comments No Known Allergies Other 12/19/2007 documented as of this encounter (statuses as of 07/11/2019) Medications Medication Sig Dispensed Refills Start Date End Date Status ASPIRIN 81 PO Take by mouth. 0 Active Nicotine Polacrilex 1 Lozenge by 360 Tab 1 05/24/2019 Active (NICORETTE) 4 MG Mouth/Throat route Mouth/Throat Lozenge NEEDED (smoking cessation). albuterol HFA Take 2 Puffs by 1 Inhaler 2 05/25/2019 Active (VENTOLIN HFA) 108 inhalation EVERY (90 Base) MCG/ACT FOUR HOURS Inhalation Aero NEEDED (SOB). SolnIndications: COPD, mild (HCC) documented as of this encounter (statuses as of 07/11/2019) Active Problems Problem Noted Date S/P rotator cuff repair 11/21/2013 Spermatocele 12/19/2012 Family history of coronary artery disease 05/28/2011 Overview: Dad [place] age 65 Skull fracture 12/19/2007 Overview: Fell out of tree S/p craniotomy [facility] Loss of smell/taste Fracture of mandible, closed 12/19/2007 Overview: . Replaced inactive diagnosis Personal history of alcoholism 12/19/2007 Overview: Sober since 1999. Attneds AA and did ETOH rehab [facility] 1999. Tobacco use disorder, continuous 12/19/2007 Overview: 1 packs per day since 1966 Cut down to 3/4 packs per day 2009 Cocaine abuse 12/19/2007 Overview: Hx of seizure with crack cocaine abuse. Coronary artery disease 12/19/2007 Overview: S/p cocaine induced NM S/p [facility] . Stress echocardiogram negative 2007 documented as of this encounter (statuses as of 07/11/2019) Resolved Problems Problem Noted Date Resolved Date Rotator cuff tear 05/29/2014 08/30/2017 Shoulder pain, right 02/26/2014 08/30/2017 Disorders of bursae and tendons in shoulder region, 05/26/2013 08/30/2017 unspecified Shoulder pain, left 04/24/2013 08/30/2017 Low back pain 04/12/2012 08/30/2017 Hepatomegaly 12/19/2007 05/28/2011 documented as of this encounter (statuses as of 07/11/2019) Immunizations Name Administration Dates Next Due Influenza [...] Assigned at Date Recorded Not on file documented as of this encounter Last Filed Vital Signs Vital Sign Reading Time Taken Comments Blood Pressure 124/90 07/11/2019 11:32 AM EST Pulse 70 07/11/2019 11:32 AM EST Temperature - - Respiratory Rate - - Oxygen Saturation - - Inhaled Oxygen Concentration - - Weight 47.6 kg (105 lb) 07/11/2019 11:32 AM EST Height 152.4 cm (5') 07/11/2019 11:32 AM EST Body Mass Index 20.51 07/11/2019 11:32 AM EST documented in this encounter Patient Instructions Patient InstructionsRohan Mchugh MD - 07/11/2019 11:20 AM ESTTry to get to five cigarette per day Think about ways to handle stress other than cigarette Cardiology not needed Pulmonary MD Dr Call [phone] signed by Rohan Mchugh MD at 07/11/2019 11:59 AM EST documented in this encounter Progress Notes Rohan Mchugh MD - 07/11/2019 11:20 AM EST TCM Statement. Review of the hospitalization: I am seeing for transition of care following hospitalization. The date of discharge was: 07/05/19 [facility] The discharge diagnosis was Non cardiovascular chest pain tobacco use copd and 1.2 cm left upper lung nodule He had stopped cigarette for 2 days now back to smoking but less down to 7 per day he wants to quit had nicotine replacement therapy lozenges at home not using them he has not set smoking quit date He had seen pulmonary MD Call for pulmonary nodule history [facility] Dr Call Patient Active Problem List Diagnosis ? Skull fracture (HCC) ? Fracture of mandible, closed (HCC) ? Personal history of alcoholism (HCC) ? Tobacco use disorder, continuous ? Cocaine abuse (HCC) ? Coronary artery disease ? Family history of coronary artery disease ? Spermatocele ? S/P rotator cuff repair Outpatient Medications Marked as Taking for the 07/11/19 encounter (Office Visit ) with Rohan Mchugh MD Medication Sig Dispense Refill ? albuterol HFA (VENTOLIN HFA) 108 (90 Base) MCG/ACT Inhalation Aero Soln Take 2 Puffs by inhalation EVERY FOUR HOURS NEEDED (SOB). 1 Inhaler 2 ? ASPIRIN 81 PO Take by mouth. ? Nicotine Polacrilex (NICORETTE) 4 MG Mouth/Throat Lozenge 1 Lozenge by Mouth/Throat route ASNEEDED (smoking cessation). 360 Tab 1 ROS no chest pain no new pulmonary symptoms Exam BP 124/90 Pulse 70 Ht 5' (1.524 m) Wt 105 lb (47.6 kg) BMI 20.51 kg/m2 S1 and S2 normal, no murmurs, clicks, gallops or rubs. Regular rate and rhythm. Chest is clear; no wheezes or rales. No edema or JVD. ICD-9-CM ICD-10-CM 1. Tobacco use disorder, continuous I spent 12 minutes in direct face to face counseling with the patient regarding smoking cessation. A plan was developed with the patient to use nicotine replacement therapy lozenges and cut down cigarette use over the next 1-2 weeks. A emt intermediate goal to set a quit date was discussed with patient. Pharmacologic and behavioral strategies for tobacco cessation were dicussed at length. (61464). 305.1 F17.209 2. Pulmonary nodule, left follow up pulmonary MD 793.11 R91.1 REFER TO PULMONARY 3. Non-cardiac chest pain reassurance 786.59 R07.89 4. Other emphysema (HCC) SHARON metered dose inhaler as needed 492.8 J43.8 I reviewed the discharge summary, discharge instructions, and pertinent additional documentation obtained during hospitalization. I reconciled the medications. I also reviewed the Transition of Care documentation done by staff. The tests that were not available at the time of discharge were reviewed. Additional tests which are not yet available include: none Coordination of care. - I am satisfied that appropriate referrals are in place to deal with the problems identified during hospitalization, and that the patient has adequate community resources and support in place. I confirmed the patient's understanding of the diagnosis and plan of care. Specific education that was provided today: Patient Instructions Try to get to five cigarette per day Think about ways to handle stress other than cigarette Cardiology not needed Pulmonary MD Dr Call [phone] The current and discharge medications were reconciled by me, today The source document was hospital discharge summary documented in this encounter Plan of Treatment Name Type Priority Associated Diagnoses Order Schedule REFER TO PULMONARY Referral Routine Pulmonary nodule, left Expected: 2019, Expires: 07/11/2020 Health Maintenance Due Date Last Done Comments PNEUMOCOCCAL 0-64 YRS (1 of 1963 1 - PPSV23) DTaP/Tdap/Td Vaccines (1 - 01/28/1968 Tdap) ZOSTER IMMUNIZATION SERIES 2007 [...] Author Type Problems Progress Smoking COPD No [place], Cessation Rohan Bell MD Note: This is an individualized treatment [...] of this encounter Implants Implanted Type Area Brush Painter Device Shelf Model / Identifier Expiration Date Serial / Lot Lisseth Crossft 5.5mm Suture [place] - [id number] Left: LINTEC 11/13/2014 [id number] / Implanted: Qty: 1 on 07/05/2013 by Mani Carrillo MD at [facility] Shoulder / [id number] Description:ref# [id number] Implant One Of A Kind - [id number] Left: Shoulder ARTHREX 09/13/2014 AR- [id number] / Implanted: Qty: 1 on 07/05/2013 by Mani Carrillo MD at [facility]1927BFT / [id number] Description:SUTURE ANCHOR BIOCORKSCREW VENTED Fiberwire #2 - [id number] Left: Shoulder ARTHREX AR-7200 / Implanted: Qty: 1 on 07/05/2013 by Mani Carrillo MD at [facility] / Fiberwire #2 - [id number] ARTHREX 10/15/2018 AR-7200 / Implanted: Qty: 1 on 06/06/2014 at [facility] / [id number] Suture [place] Bio Cork Screw Vented ARTHREX 09/13/2014 / Implanted: Qty: 1 on 06/06/2014 by Mani Carrillo MD at [facility]1927BFT / [id number] Description:shoulder documented as of this encounter Results Not on filedocumented in this encounter Visit Diagnoses Diagnosis Tobacco use disorder, continuous Tobacco use disorder Pulmonary nodule, left Solitary pulmonary nodule Non-cardiac chest pain Other chest pain Other emphysema (HCC) Other emphysema documented in this encounter Insurance Payer Benefit Plan / Subscriber ID Effective Dates Phone Address Type Group LAKESHA BELLAMY [id number] 2017-Present Lakesha MCDONALD PPO Guarantor Name Account Type Relation to Date of Phone Billing Patient Address Rick Aden Personal/Family 1955 [phone] (Home) [place], [place] [phone] (Work) documented as of this encounter Advance Directives Type Date 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
[2019-08-05 10:02] LABS: ABS Basophils 0.1 10^3/ul (0-0.2); ABS Eosinophils 0.1 10^3/ul (0-0.6); ABS Lymphocytes 1.5 10^3/ul (1.0-4.8); ABS Monocytes 0.6 10^3/ul (0-0.8); ABS Neutrophils 5.1 10^3/ul (1.5-7.7); Eosinophil % 1.8 %; Hematocrit 44 % (42-52); Hemoglobin 15.3 g/dL (14.0-18.0); Lymphocyte % 20.5 %; Mean Corpuscular HGB Conc 35 g/dL (31-36); Mean Corpuscular Hemoglobin 32 pg (27-31); Mean Corpuscular Volume 91 fL (80-94); Mean Platelet Volume 7.4 fL (7.4-10.4); Platelet Count 243 10^3/uL (150-450); Red Blood Count 4.85 10^6 /uL (4.18-5.48); Red Cell Distribution Width 14 % (10-15); White Blood Count 7.5 10^3/uL (3.5-10.8)
[2019-08-05 10:08] LABS: INR 0.97 (0.82-1.09)
--- NOTE | 2019-08-05 10:50 | ED ---
HPI Cardiac - HPI Summary HPI Summary: This patient is a 64yo M presenting to the ED with coughing up blood. States he had a lung biopsy yesterday by Dr. Call for lung CA. Patient states he had a cough with a small amount of blood this morning and was told to report to the ED if he had these symptoms. Since that time, he has not had any further bleeding or cough. Continues to smoke. One cigarette this AM. Denies dizziness, chest pain, SOB. States he feels otherwise well and at his baseline. - History of Current Complaint Chief Complaint: EDGeneral Stated Complaint: SPITTING BLOOD Time Seen by Provider: 08/05/19 09:12 Hx Obtained From: Patient Onset/Duration: Started Hours Ago Timing: Constant Initial Severity: Mild Current Severity: None Pain Intensity: 0 Pain Scale Used: 0-10 Numeric Aggravating Factor(s): Nothing Alleviating Factor(s): Nothing Associated Signs and Symptoms: Positive: Negative - Risk Factors Pulmonary Embolism Risk Factors: Negative Cardiac Risk Factors: Negative Atrial Fibrillation Risk Factors: Negative TAD Risk Factors: Negative - Additional Pertinent History Primary Care Physician: [id number] - Allergy/Home Medications Allergies/Adverse Reactions: Allergies Allergy/AdvReac Type Severity Reaction Status Date / Time No Known Allergies Allergy Verified 08/05/19 09:11 Home Medications: Home Medications Aspirin EC TAB* [Ecotrin EC Low Dose 81 MG*] 81 mg PO QAM 09/23/17 [History Confirmed 08/05/19] Albuterol HFA INHALER* [Ventolin HFA Inhaler*] 1 puff INH Q4H PRN #1 mdi [Rx Confirmed 08/05/19] PMH/Surg Hx/FS Hx/Imm Hx Previously Healthy: Yes Endocrine/Hematology History: Denies: Hx Diabetes, Hx Thyroid Disease Cardiovascular History: Reports: Hx Angina, Hx Coronary Artery Disease - CAD, Hx Myocardial Infarction - substance abuse in Respiratory History: Reports: Hx Chronic Obstructive Pulmonary Disease (COPD) Denies: Hx Asthma, Other Respiratory Problems/Disorders GI History: Reports: Hx Hiatal Hernia - SURGERY 20+ YEARS AGO PER PT Denies: Hx Cirrhosis, Hx Crohn's Disease, Hx Gastroesophageal Reflux Disease , Hx Ulcer, Other GI Disorders History: Denies: Hx Chronic Renal Failure, Hx Renal Disease Musculoskeletal History: Reports: Hx Arthritis - LEFT WRIST, Other Musculoskeletal History - reports "very cold toes" over last 6 months Sensory History: Denies: Hx Contacts or Glasses, Hx Hearing Aid Opthamlomology History: Denies: Hx Contacts or Glasses Neurological History: Reports: 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 ALCOHOL Denies: Other Neuro Impairments/Disorders - Surgical History Surgery Procedure, Year, and Place: 1980S, SKULL, JAW, NOSE, LEFT WRIST, RIGHT LEG FROM A FALL, [place]. hernia repair Hx Anesthesia Reactions: No - Immunization History Hx Pertussis Vaccination: No Immunizations Up to Date: Yes Infectious Disease History: No Infectious Disease History: Denies: Hx Hepatitis, Hx Human Immunodeficiency Virus (HIV), Traveled Outside the [place] in Last 30 Days - Family History Known Family History: Positive: Hypertension - Social History Occupation: Unemployed Lives: With Family Alcohol Use: None Alcohol Amount: sober since 1998 Hx Substance Use: Yes Substance Use Type: Reports: None Substance Use Comment - Amount & Last Used: sober since 1998 Hx Tobacco Use: Yes Smoking Status (MU): Light Every Day Tobacco Smoker Type: Cigarettes Amount Used/How Often: 1 PPD Have You Smoked in the Last Year: No Review of Systems Negative: Fever, Chills, Fatigue, Skin Diaphoresis Negative: Palpitations, Chest Pain Negative: Shortness Of Breath, Cough Genitourinary: Negative Positive: no symptoms reported, see HPI Negative: Arthralgia, Myalgia Skin: Negative Neurological/Mental Status: Negative All Other Systems Reviewed And Are Negative: Yes Physical Exam Triage Information Reviewed: Yes Vital Signs On Initial Exam: Initial Vitals Temp Pulse Resp BP Pulse Ox 98.0 F 63 16 143/91 99 08/05/19 09:09 08/05/19 09:09 08/05/19 09:09 08/05/19 09:09 08/05/19 09:09 Vital Signs Reviewed: Yes Appearance: Positive: Well-Appearing, Well-Nourished Skin: Positive: Warm, Skin Color Reflects Adequate Perfusion Head/Face: Positive: Normal Head/Face Inspection Eyes: Positive: EOMI, GEOVANNY, Conjunctiva Clear Neck: Positive: Supple, No Lymphadenopathy Respiratory/Lung Sounds: Positive: Clear to Auscultation, Breath Sounds Present Cardiovascular: Positive: RRR, Pulses are Symmetrical in both Upper and Lower Extremities Musculoskeletal: Positive: Normal, Strength/ROM Intact Neurological: Positive: Speech Normal Psychiatric: Positive: Normal, Affect/Mood Appropriate AVPU Assessment: Alert Procedures - Sedation Patient Received Moderate/Deep Sedation with Procedure: No Diagnostics - Vital Signs Vital Signs Temp Pulse Resp BP Pulse Ox 08/05/19 10:47 97.9 F 65 18 149/101 99 08/05/19 10:44 149/101 08/05/19 10:00 51 100 08/05/19 09:49 55 148/88 99 08/05/19 09:20 55 99 08/05/19 09:19 53 135/89 99 08/05/19 09:09 98.0 F 63 16 143/91 99 - Laboratory Lab Results: Lab Results 08/05/19 08/05/19 Range/Units 09:52 09:52 WBC 7.5 (3.5-10.8) 10^3/uL RBC 4.85 (4.18-5.48) 10^6 /uL Hgb 15.3 (14.0-18.0) g/dL Hct 44 (42-52) % MCV 91 (80-94) fL MCH 32 H (27-31) pg MCHC 35 (31-36) g/dL RDW 14 (10-15) % Plt Count 243 (150-450) 10^3/uL MPV 7.4 (7.4-10.4) fL Neut % (Auto) 68.7 % Lymph % (Auto) 20.5 % [place] % (Auto) 7.6 % Eos % (Auto) 1.8 % Baso % (Auto) 1.4 % Absolute Neuts (auto) 5.1 (1.5-7.7) 10^3/ul Absolute Lymphs (auto) 1.5 (1.0-4.8) 10^3/ul Absolute Monos (auto) 0.6 (0-0.8) 10^3/ul Absolute Eos (auto) 0.1 (0-0.6) 10^3/ul Absolute Basos (auto) 0.1 (0-0.2) 10^3/ul Absolute Nucleated RBC 0.0 10^3/ul Nucleated RBC % 0.0 INR (Anticoag Therapy) 0.97 (0.82-1.09) Result Diagrams: 08/05/19 09:52 Lab Statement: Any lab studies that have been ordered have been reviewed, and results considered in the medical decision making process. Disposition - Course Course Of Treatment: Patient evaluated for hemoptysis. Denies this currently. Denies any sxs. Observed patient for 2 hours with cardiopulm monitor. VS stable. slightly bradycardic. Pt has no hemoptysis, cp, sob while in the ED being monitored. Labs obtained which are unremarkable. Pt able to be dc'd home and given strict return precautions of further bleeding. - Diagnoses Provider Diagnoses: Hemoptysis Discharge ED - Sign-Out/Discharge Documenting (check all that apply): Patient Departure - Discharge Plan Condition: Stable Disposition: HOME Patient Education Materials: Needle Biopsy of the Lung (DC) Referrals: Rohan Mchugh MD [Primary Care Provider] - Additional Instructions: Please return to the ED immediately if you begin to have more/worse bleeding. As discussed, coughing up a bit of blood after a biopsy is normal, however large amounts of blood may indicate something more serious. - Billing Disposition and Condition Condition: STABLE Disposition: Home
[2019-08-05 10:54] VITALS: BP 164/97
== END 2019-08-05 10:47 | disposition home or self-care (01) ==
LOC: ED 09:07
DX: R04.2 Hemoptysis (principal); I25.119 Atherosclerotic heart disease of native coronary artery with unspecified angina pectoris; J44.9 Chronic obstructive pulmonary disease, unspecified; Z79.82 Long term (current) use of aspirin; F17.210 Nicotine dependence, cigarettes, uncomplicated
CPT/HCPCS: 36415; 85025; 85610; 99282